=== PATIENT | female | born 1970 | race Caucasian/White ===

== ENCOUNTER 2018-03-15 09:59 | Emergency (ER) | payer SELFPAY ==
--- NOTE | 2018-03-15 11:10 | RAD REPORT ---
EXAM DESCRIPTION: CT - Head Brain Wo Cont - 03/15/2018 11:04 am CLINICAL HISTORY: Headache COMPARISON: August 2017 TECHNIQUE: Axial 5 mm thick images of the head were obtained without IV contrast. All CT scans are performed using dose optimization technique as appropriate and may include automated exposure control or mA/KV adjustment according to patient size. FINDINGS: No intracranial hemorrhage, mass, edema or shift of mid-line structures. No acute infarcti on changes seen. No abnormal extra-axial fluid collections. Ventricles are normal. Mastoid air cells and visualized portions of the paranasal sinuses are clear. No acute bony findings. IMPRESSION: Negative non-contrast CT head examination. No significant change from comparison.
[2018-03-15] MEDS ORDERED: KETOROLAC 30 MG/ML INJ ONE (11:39)
[2018-03-15] MEDS ORDERED: METOCLOPRAMIDE 10 MG/2mL INJ ONE (11:39)
[2018-03-15] MEDS ORDERED: DIPHENHYDRAMINE 50 MG/ML VIAL ONE (11:39)
--- NOTE | 2018-03-15 12:06 | EDPHYS ---
Physician Documentation [facility] Name: Stacey Sesay Age: 47 yrs Sex: Female : 1970 Arrival Date: 03/15/2018 Time: 10:02 Bed 30 Private MD: None, None ED Physician Dion De Leon HPI: 03/15 11:00 This 47 yrs old Female presents to ER via Ambulatory with complaints of pm1 Headache, Vomiting. 11:00 The patient complains of pain to the left occipital area and right occipital area pm1 radiating to forehead. The patient describes the headache as aching, constant. Onset: The symptoms/episode began/occurred 1 week(s) ago. Associated signs and symptoms: Pertinent positives: nausea, Photophobia vomiting, Pertinent negatives: fever, neck stiffness, paresthesias, weakness. Severity of symptoms: in the emergency department the pain is actually worse. Headache History: The patient has had previous headaches and this one is similar to previous episodes. The symptoms are alleviated by nothing. the symptoms are aggravated by lights. The patient has not experienced similar symptoms in the past. The patient has not recently seen a physician. 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 - Social history:: Smoking status: Patient uses tobacco products, smokes one pack cigarettes per day. - Ebola Screening: : No symptoms or risks identified at this time. ROS: 11:00 Constitutional: Negative for fever, chills, and weight loss, Eyes: Negative for injury, pm1 pain, redness, and discharge, ENT: Negative for injury, pain, and discharge, Neck: Negative for injury, pain, and swelling, Cardiovascular: Negative for chest pain, palpitations, and edema, Respiratory: Negative for shortness of breath, cough, wheezing, and pleuritic chest pain, Abdomen/GI: Negative for abdominal pain, nausea, vomiting, diarrhea, and constipation, Back: Negative for injury and pain, : Negative for injury, bleeding, discharge, and swelling, MS/Extremity: Negative for injury and deformity, Skin: Negative for injury, rash, and discoloration. 11:00 Neuro: Positive for headache, Negative for dizziness, numbness, tingling, weakness. Exam: 11:00 Constitutional: This is a well developed, well nourished patient who is awake, alert, pm1 and in no acute distress. Eyes: Pupils equal round and reactive to light, extra-ocular motions intact. Lids and lashes normal. Conjunctiva and sclera are non-icteric and not injected. Cornea within normal limits. Periorbital areas with no swelling, redness, or edema. ENT: Nares patent. No nasal discharge, no septal abnormalities noted. Tympanic membranes are normal and external auditory canals are clear. Oropharynx with no redness, swelling, or masses, exudates, or evidence of obstruction, uvula midline. Mucous membranes moist. Neck: Trachea midline, no thyromegaly or masses palpated, and no cervical lymphadenopathy. Supple, full range of motion without nuchal rigidity, or vertebral point tenderness. No Meningismus. Chest/axilla: Normal chest wall appearance and motion. Nontender with no deformity. No lesions are appreciated. Cardiovascular: Regular rate and rhythm with a normal S1 and S2. No gallops, murmurs, or rubs. Normal PMI, no JVD. No pulse deficits. Respiratory: Lungs have equal breath sounds bilaterally, clear to auscultation and percussion. No rales, rhonchi or wheezes noted. No increased work of breathing, no retractions or nasal flaring. Abdomen/GI: Soft, non-tender, with normal bowel sounds. No distension or tympany. No guarding or rebound. No evidence of tenderness throughout. Back: No spinal tenderness. No costovertebral tenderness. Full range of motion. Skin: Warm, dry with normal turgor. Normal color with no rashes, no lesions, and no evidence of cellulitis. MS/ Extremity: Pulses equal, no cyanosis. Neurovascular intact. Full, normal range of motion. 11:00 Head/face: Exam is negative for ramirez signs, contusion, raccoon eyes, swelling, Noted is no obvious of injury or deformity except tenderness, of the top of head, forehead, left occipital area and right occipital area. 11:00 Neuro: Orientation: is normal, Cranial nerves: CN II- XII are normal as tested, Cerebellar function: normal finger to nose testing, Motor: moves all fours, Sensation: is normal, no obvious gross deficits. Vital Signs: 10:07 BP 146 / 104; Pulse 68; Resp 18; Temp 97; Pulse Ox 98% ; Weight 78.02 kg; Height 5 ft. sv 4 in. (162.56 cm); Pain 8/10; 10:37 BP 124 / 85; Pulse 61; Resp 16; Pulse Ox 99% on R/A; Pain 8/10; ed1 11:13 BP 151 / 87; Pulse 56; Resp 20; Pulse Ox 100% on R/A; Pain 10/10; ed1 12:02 BP 134 / 85; Pulse 72; Resp 16; Pulse Ox 100% on R/A; Pain 0/10; ed1 10:07 Body Mass Index 29.52 (78.02 kg, 162.56 cm) sv MDM: 10:18 Patient medically screened. pm1 12:05 Data reviewed: vital signs. Data interpreted: Pulse oximetry: on room air is 100 %. pm1 Interpretation: normal. Counseling: I had a detailed discussion with the patient and/or guardian regarding: the historical points, exam findings, and any diagnostic results supporting the discharge/admit diagnosis, radiology results, the need for outpatient follow up, to return to the emergency department if symptoms worsen or persist or if there are any questions or concerns that arise at home. 12:05 ED course: Pain improved with medications given in the ER. pm1 03/15 10:27 Order name: Urine Dipstick--Ancillary (enter results) 03/15 10:27 Order name: Urine --Ancillary (enter results) 03/15 10:33 Order name: CT Head Brain wo Cont; Complete Time: 11:16 pm1 03/15 11:20 Order name: IV Saline Lock; Complete Time: 11:33 pm1 Administered Medications: 11:42 Drug: Reglan 10 mg Route: IVP; Site: right antecubital; ss 12:15 Follow up: Response: No adverse reaction; Marked relief of symptoms ed1 11:42 Drug: Benadryl 25 mg Route: IVP; Site: right antecubital; ss 12:15 Follow up: Response: No adverse reaction; Marked relief of symptoms ed1 11:42 Drug: TORadol 30 mg Route: IVP; Site: right antecubital; ss 12:15 Follow up: Response: No adverse reaction; Pain is decreased ed1 Disposition: 14:42 Co-signature as Attending Physician, Dion De Leon MD I agree with the assessment and kdr plan of care. Disposition: 03/15/18 12:06 Discharged to Home. Impression: Headache. - Condition is Stable. - Discharge Instructions: General Headache Without Cause. - Medication Reconciliation Form, Thank You Letter, Antibiotic Education, Prescription Opioid Use form. - Follow up: Emergency Department; When: As needed; Reason: Worsening of condition. Follow up: Private Physician; When: 2 - 3 days; Reason: Recheck today's complaints, Continuance of care, Re-evaluation by your physician. - Problem is new. - Symptoms have improved. Signatures: Dispatcher [employer] EDMS Nisha Lucero RN Dion Leyva MD MD [facility] Kristin Kessler RN RN Ngozi Pratt, FOOD PRODUCTION WORKER FOOD PRODUCTION WORKER ed1 Michael Silver NP CHIEF WHARFINGER pm1 Corrections: (The following items were deleted from the chart) 12:15 12:06 03/15/2018 12:06 Discharged to Home. Impression: Headache. Condition is Stable. ed1 Forms are Medication Reconciliation Form, Thank You Letter, Antibiotic Education, Prescription Opioid Use. Follow up: Emergency Department; When: As needed; Reason: Worsening of condition. Follow up: Private Physician; When: 2 - 3 days; Reason: Recheck today's complaints, Continuance of care, Re-evaluation by your physician. Problem is new. Symptoms have improved. pm1
--- NOTE | 2018-03-15 12:06 | ER ---
Nurse's Notes [facility] Name: Stacey Sesay Age: 47 yrs Sex: Female : 1970 Arrival Date: 03/15/2018 Time: 10:02 Bed 30 Private MD: None, None Diagnosis: Headache Presentation: 03/15 10:05 Presenting complaint: Patient states: intermittent migraine, dizziness, vomiting x 1 sv week. Transition of care: patient was not received from another setting of care. Onset of symptoms was March 08, 2018. Care prior to arrival: None. 10:05 Method Of Arrival: Ambulatory sv 10:05 Acuity: MERARY 3 sv 10:27 Risk Assessment: Do you want to hurt yourself or someone else? Patient reports no ed1 desire to harm self or others. Initial Sepsis Screen: Does the patient meet any 2 criteria? No. Patient's initial sepsis screen is negative. Does the patient have a suspected source of infection? No. Patient's initial sepsis screen is negative. Triage Assessment: 10:10 Pain: Also complains of nausea. ed1 10:10 Headache History: Denies prior headaches. 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 - Social history:: Smoking status: Patient uses tobacco products, smokes one pack cigarettes per day. - Ebola Screening: : No symptoms or risks identified at this time. Screenin:12 Abuse screen: Denies threats or abuse. Denies injuries from another. Nutritional ed1 screening: No deficits noted. Tuberculosis screening: No symptoms or risk factors identified. Fall Risk None identified. Assessment: 10:10 General: Appears uncomfortable, Behavior is calm, cooperative. Pain: Complains of pain ed1 in head Pain does not radiate. Pain currently is 8 out of 10 on a pain scale. Quality of pain is described as aching, throbbing, Pain began started 1 week ago Is continuous, Current management - is no interventions. Neuro: Level of Consciousness is awake, alert, obeys commands, Oriented to person, place, time, situation, Reports blurred vision dizziness, headache in entire parietal area, frontal area, occipital area, that is the "worst ever". Cardiovascular: Denies chest pain, Heart tones S1 S2 present Capillary refill < 3 seconds in bilateral fingers. Respiratory: Airway is patent Respiratory effort is even, unlabored, Respiratory pattern is regular, symmetrical, Breath sounds are clear bilaterally. GI: Abdomen is non-distended, Bowel sounds present X 4 quads. Abd is soft and non tender X 4 quads. Reports nausea, vomiting, Patient currently denies diarrhea. : No signs and/or symptoms were reported regarding the genitourinary system. EENT: No signs and/or symptoms were reported regarding the EENT system. Derm: Skin is pink, warm \\T\\ dry. Musculoskeletal: Circulation, motion, and sensation intact. 10:15 General: The previous assessment is accurate, call light remains within reach. . ss 10:38 Reassessment: Pt ambulatory to bathroom with steady gait. Reports one episode of ed1 vomiting in bathroom. 11:13 Reassessment: No changes from previously documented assessment. Patient and/or family ed1 updated on plan of care and expected duration. Pain level reassessed. Patient is alert, oriented x 3, equal unlabored respirations, skin warm/dry/pink. Patient states symptoms have not improved. 12:02 Reassessment: Patient appears in no apparent distress at this time. Patient and/or ed1 family updated on plan of care and expected duration. Pain level reassessed. Patient is alert, oriented x 3, equal unlabored respirations, skin warm/dry/pink. Patient states feeling better. Patient states symptoms have improved. Vital Signs: 10:07 BP 146 / 104; Pulse 68; Resp 18; Temp 97; Pulse Ox 98% ; Weight 78.02 kg; Height 5 ft. sv 4 in. (162.56 cm); Pain 8/10; 10:37 BP 124 / 85; Pulse 61; Resp 16; Pulse Ox 99% on R/A; Pain 8/10; ed1 11:13 BP 151 / 87; Pulse 56; Resp 20; Pulse Ox 100% on R/A; Pain 10/10; ed1 12:02 BP 134 / 85; Pulse 72; Resp 16; Pulse Ox 100% on R/A; Pain 0/10; ed1 10:07 Body Mass Index 29.52 (78.02 kg, 162.56 cm) sv ED Course: 10:02 Patient arrived in ED. mr 10:02 None, None is Private Physician. mr 10:06 Triage completed. sv 10:07 Arm band placed on left wrist. sv 10:10 Ngozi Pratt LVN is Primary Nurse. ed1 10:12 Awaiting ED provider evaluation. ed1 10:12 Patient has correct armband on for positive identification. Placed in gown. Bed in low ed1 position. Call light in reach. Side rails up X2. Pulse ox on. NIBP on. 10:18 Michael Silver NP is PHCP. pm1 10:18 Dion De Leon MD is Attending Physician. pm1 10:20 Urine collected: clean catch specimen, clear. ed1 10:[address] vm2 11:03 CT completed. Patient tolerated procedure well. Patient moved back from CT. vm2 11:04 CT Head Brain wo Cont In Process Unspecified. EDMS 11:33 Inserted saline lock: 20 gauge in right antecubital area, using aseptic technique. ed1 12:03 Awaiting disposition. ed1 12:13 No provider procedures requiring assistance completed. IV discontinued, intact, ed1 bleeding controlled, No redness/swelling at site. Pressure dressing applied. Administered Medications: 11:42 Drug: Reglan 10 mg Route: IVP; Site: right antecubital; ss 12:15 Follow up: Response: No adverse reaction; Marked relief of symptoms ed1 11:42 Drug: Benadryl 25 mg Route: IVP; Site: right antecubital; ss 12:15 Follow up: Response: No adverse reaction; Marked relief of symptoms ed1 11:42 Drug: TORadol 30 mg Route: IVP; Site: right antecubital; ss 12:15 Follow up: Response: No adverse reaction; Pain is decreased ed1 Outcome: 12:06 Discharge ordered by . pm1 12:13 Discharged to home ambulatory, with family. ed1 12:13 Condition: good 12:13 Discharge instructions given to patient, Instructed on discharge instructions, follow up and referral plans. Demonstrated understanding of instructions, follow-up care. 12:15 Patient left the ED. ed1 Signatures: Dispatcher [employer] EDNisha Hamilton, RN RN Roberta Castro mr Kristin Kessler, RN RN ss Ngozi Pratt, MEDICAL BILLING MANAGER MEDICAL BILLING MANAGER ed1 Michael Silver, ADVANCED PRACTICE NURSE ADVANCED PRACTICE NURSE pm1 Magalie Sears 2
[2018-03-15 12:43] LABS: Urine Blood TRACE (NEG); Urine Glucose NEGATIVE (NEG); Urine Protein NEGATIVE (NEG); Urine pH 7.5 (5.0-7.0)
== END 2018-03-15 12:15 | disposition home or self-care (01) ==
LOC: ER 09:59
DX: R51 Headache (principal); F17.210 Nicotine dependence, cigarettes, uncomplicated
CPT/HCPCS: 70450; 81003; 81025; 96374; 96375; 99284; J2765

== ENCOUNTER 2019-02-16 13:06 | Emergency (ER) | payer SELFPAY ==
[2019-02-16] MEDS ORDERED: DIAZEPAM 5 MG TABLET ONE (14:28)
[2019-02-16] MEDS ORDERED: HYDROCODONE/APAP 5/325 MG TAB ONE (14:28)
[2019-02-16] MEDS ORDERED: HYDROCODONE/APAP 10/325 TAB ONE (14:30)
--- NOTE | 2019-02-16 15:19 | RAD REPORT ---
EXAM DESCRIPTION: RAD - Lumbar Spine 3 Views - 02/16/2019 3:11 pm CLINICAL HISTORY: Back pain FINDINGS: Minimal posterior subluxation L4 on L5 Moderate spondylosis involves distal lumbar spine consisting disc space narrowing and osteophytes. Os teoarthritis involves the facet joints of lower lumbar spine No fracture Osteoporosis
--- NOTE | 2019-02-16 15:31 | RAD REPORT ---
EXAM DESCRIPTION: USExtremity Venous Uni Ltd02/16/2019 3:00 pm CLINICAL HISTORY: Right leg pain and swelling. COMPARISON: None. FINDINGS: Right common femoral, superficial femoral, popliteal veins are compressible and demonstrat e augmentation. Doppler demonstrates good flow. 27 millimeter fluid collection medial right knee IMPRESSION: No evidence of deep venous thrombosis involving the right lower extremity. 27 millimeter fluid collection medial right knee may represent a small hematoma
[2019-02-16] MEDS ORDERED: ONDANSETRON 4 MG (ODT) TAB ONE (15:41)
[2019-02-16 17:43] LABS: BUN Blood Urea Nitrogen 10 mg/dL (7-18); Bicarbonate 28 mmol/L (21-32); Glucose Level 77 mg/dL (74-106); Potassium 3.8 mmol/L (3.5-5.1); Sodium Level 140 mmol/L (136-145)
--- NOTE | 2019-02-16 18:32 | RAD REPORT ---
EXAM DESCRIPTION: CT - Angio Aorta For Dissection - 02/16/2019 6:12 pm CLINICAL HISTORY: . Chest /abd pain COMPARISON: None TECHNIQUE: Computed tomography angiography of the chest, abdomen pelvis were obtained. 100 cc Isovue 370 was administered intravenously. Coronal and sagittal reconstruction were performed. MIP 3D reconstruction was performed All CT scans are performed using dose optimization technique as appropriate and may include automated exposure control or mA/KV adjustment according to patient size. FINDINGS: An aortic dissection is not seen. An aortic aneurysm is not displayed. The celiac, SMA and COLE are patent . A lung consolidation is not present. A pericardial effusion is not seen. A pleural effusion is not n oted. The liver,spleen, pancreas adrenals kidneys demonstrate no significant abnormality. minimal anterior subluxation of L5 on S1. Spondylolysis L5 3 centimeter area of narrowing involves the sigmoid colon with diverticula and minimal stranding in t he adjacent fat Normal appendix IMPRESSION: Negative for an aortic dissection. 3 centimeter narrowing of the sigmoid colon with diverticula and minimal stranding in the adjacent f at. This may indicate mild diverticulitis or a mass. Direct visualization recommended
--- NOTE | 2019-02-16 19:24 | ER ---
Nurse's Notes [facility] Name: Stacey Sesay Age: 48 yrs Sex: Female : 1970 Arrival Date: 02/16/2019 Time: 13:08 Bed 15 Private MD: Diagnosis: Diverticulitis of large intestine with perforation and abscess without bleeding;Hematoma of the right leg;Strain of muscle, fascia and tendon of lower back;Strain of muscle and tendon of back wall of thorax Presentation: 02/16 13:09 Presenting complaint: Patient states: about 30 mins ago, i noticed pain and a knot on hj the back of my R thigh area, pain is 8/10; denies SOB;denies trauma to the area; denies hx of DVT;. Transition of care: patient was not received from another setting of care. Onset of symptoms was February 16, 2019. Risk Assessment: Do you want to hurt yourself or someone else? Patient reports no desire to harm self or others. Initial Sepsis Screen: Does the patient meet any 2 criteria? No. Patient's initial sepsis screen is negative. Does the patient have a suspected source of infection? No. Patient's initial sepsis screen is negative. Care prior to arrival: None. 13:09 Method Of Arrival: Ambulatory 13:09 Acuity: MERARY 4 hj CVICU RN: 13:11 LMP N/A - Post-menopause Historical: - Allergies: 13:10 No Known Allergies; hj - PMHx: 13:10 Aneurysm; Seizures; hj - PSHx: 13:10 Cholecystectomy; hj - Immunization history:: Adult Immunizations up to date. - Social history:: Smoking status: Patient/guardian denies using tobacco. - Ebola Screening: : No symptoms or risks identified at this time. Screenin:10 Abuse screen: Denies threats or abuse. Denies injuries from another. Nutritional sg screening: No deficits noted. Tuberculosis screening: No symptoms or risk factors identified. Never had TB. Fall Risk None identified. Assessment: 14:10 General: Appears in no apparent distress. well groomed, well developed, well nourished, sg Behavior is calm, cooperative, appropriate for age. Pain: Complains of pain in right leg Quality of pain is described as aching, sharp, shooting, throbbing. Neuro: Level of Consciousness is awake, alert, obeys commands, Oriented to person, place, time, situation, Plastic Straightening Roll Operator are equal bilaterally Moves all extremities. Full function Gait is steady, Speech is normal, Facial symmetry appears normal. Cardiovascular: Patient's skin is warm and dry. Chest pain is denied. Respiratory: Airway is patent Respiratory effort is even, unlabored, Respiratory pattern is regular, symmetrical. GI: Abdomen is round non-distended, Reports tolerance of fluids, tolerance of food. : No signs and/or symptoms were reported regarding the genitourinary system. EENT: No signs and/or symptoms were reported regarding the EENT system. Derm: Skin is pink, warm \T\ dry. Musculoskeletal: Circulation, motion, and sensation intact. Range of motion: intact in all extremities, Swelling absent. 16:33 Reassessment: Patient appears in no apparent distress at this time. Patient and/or sg family updated on plan of care and expected duration. Pain level reassessed. Patient is alert, oriented x 3, equal unlabored respirations, skin warm/dry/pink. Patient states feeling better. 19:20 General: Appears in no apparent distress. Behavior is calm, cooperative, appropriate ea for age. Pain: Complains of pain in right leg. Neuro: Level of Consciousness is awake, alert, obeys commands, Oriented to person, place, time, situation. Cardiovascular: Patient's skin is warm and dry. Respiratory: Airway is patent Respiratory effort is even, unlabored, Respiratory pattern is regular, symmetrical. Derm: Skin is pink, warm \T\ dry. 19:40 Reassessment: Reassessment: Patient and/or family updated on plan of care and expected ea duration. Pain level reassessed. Patient is alert, oriented x 3, equal unlabored respirations, skin warm/dry/pink. Discharge instruction given to patient, verbalized the understanding of instruction. Pt left ambulatory with significant other, pt tolerating well. Patient states feeling better. Vital Signs: 13:11 BP 120 / 80; Pulse 85; Resp 18; Temp 98.1(TE); Pulse Ox 98% on R/A; Weight 78.93 kg; Height 5 ft. 4 in. (162.56 cm); Pain 7/10; 19:30 BP 118 / 62; Pulse 70; Resp 18; Pulse Ox 98% on R/A; ea 13:11 Body Mass Index 29.87 (78.93 kg, 162.56 cm) ED Course: 13:08 Patient arrived in ED. hj 13:10 Triage completed. hj 13:10 Arm band placed on right wrist. hj 14:01 Malik Jolly PA is PHCP. jmm 14:01 Dion De Leon MD is Attending Physician. jmm 14:08 Victorino Park, RN is Primary Nurse. sg 14:10 No provider procedures requiring assistance completed. sg 14:22 Awaiting for x-ray, Awaiting: and ultrasound. sg 15:14 X-ray completed. Patient tolerated procedure well. Patient moved back from radiology. mh1 15:16 Ultrasound completed. hr 15:36 US Extremity Venous Unilateral Ltd In Process Unspecified. EDMS 17:05 Radiology exam delayed due to lab results not completed at this time. (BUN/Creatinine) vm2 test not completed at this time. IV insertion attempt and/or patient not having appropriate IV at this time. 17:17 Initial lab(s) drawn, by me, sent to lab. Inserted saline lock: 22 gauge in left sg antecubital area, using aseptic technique. Blood collected. Missed attempt(s): 22 gauge in right antecubital area. Bleeding controlled, band aid applied, catheter tip intact. 17:[address] nj 18:12 CT Aorta for Dissection In Process Unspecified. EDMS 19:20 Patient has correct armband on for positive identification. Bed in low position. Call ea light in reach. Side rails up X2. 19:21 Toñito Lyles MD is Referral Physician. jmm 19:40 IV discontinued, intact, bleeding controlled, No redness/swelling at site. Pressure ea dressing applied. Administered Medications: 14:14 Drug: [place] 10 mg-325 mg 1 tabs Route: PO; sg 16:32 Follow up: Response: No adverse reaction; Pain is decreased sg 14:14 Drug: Valium 5 mg Route: PO; sg 14:30 Follow up: Response: No adverse reaction sg 15:28 Drug: Zofran 4 mg Route: PO; sg 16:14 Follow up: Response: No adverse reaction sg Outcome: 19:23 Discharge ordered by . jmm 19:46 Discharged to home ambulatory, with significant other. ea 19:46 Condition: improved 19:46 Discharge instructions given to patient, Instructed on discharge instructions, follow up and referral plans. medication usage, Demonstrated understanding of instructions, follow-up care, medications, Prescriptions given X 3. 19:47 Patient left the ED. erinn Signatures: Dispatcher [employer] EDMS Victorino Park, RN RN Malik Castillo PA PA jmm Harvey, Martha 1 Audra Wilder hr Norberto Weinstein RN RN Carmine Juan [facility] Cecilia Dugan RN RN ea Corrections: (The following items were deleted from the chart) 13:10 13:09 Presenting complaint: Patient states: about 30 mins ago, i noticed pain and a hj knot on the back of my R thigh area, pain is 8/10; denies SOB; hj 13:12 13:11 Pulse 85bpm; Resp 18bpm; Pulse Ox 98% RA; Temp 98.1F Temporal; 78.93 kg; Height 5 hj ft. 4 in.; BMI: 29.8; Pain 7/10; hj 19:45 19:40 Reassessment: erinn plasencia
--- NOTE | 2019-02-16 19:25 | EDPHYS ---
Physician Documentation [facility] Name: Stacey Sesay Age: 48 yrs Sex: Female : 1970 Arrival Date: 02/16/2019 Time: 13:08 Bed 15 Private MD: ED Physician Dion De Leon HPI: 02/16 14:10 This 48 yrs old Female presents to ER via Ambulatory with complaints of Leg jmm Pain. 14:10 The patient presents with pain, that is acute, swelling. The complaints affect the jmm posterior aspect of right knee. Onset: The symptoms/episode began/occurred today. Modifying factors: The symptoms are alleviated by nothing. the symptoms are aggravated by movement. Associated signs and symptoms: Pertinent positives: swelling. This is a 48 year old female that presents to the ED with complaints of right posterior leg pain and swelling beginning today. Patient states the pain radiates from her leg and up to her right upper back. Patient states having a history of cerebral aneurysm. . 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 - Social history:: Smoking status: Patient/guardian denies using tobacco. - Ebola Screening: : No symptoms or risks identified at this time. ROS: 14:10 Constitutional: Negative for fever, chills, and weight loss, Cardiovascular: Negative jmm for chest pain, palpitations, and edema, Respiratory: Negative for shortness of breath, cough, wheezing, and pleuritic chest pain. 14:10 Abdomen/GI: Positive for abdominal pain. 14:10 Back: Positive for radiated pain. 14:10 MS/extremity: Positive for pain, swelling. 14:10 All other systems are negative. Exam: 14:10 Head/Face: atraumatic. Eyes: EOMI, no conjunctival erythema appreciated ENT: Moist jmm Mucus Membranes Neck: Trachea midline, Supple Chest/axilla: Normal chest wall appearance and motion. Cardiovascular: Regular rate and rhythm. No edema appreciated Respiratory: Normal respirations, no respiratory distress appreciated 14:10 Constitutional: The patient appears in no acute distress, alert, awake. 14:10 Abdomen/GI: Inspection: abdomen appears normal, Bowel sounds: normal, Palpation: soft, mild abdominal tenderness, in the left lower quadrant. 14:10 Back: right sided parapinal lumbar and thoracic pain on palpation. 14:10 Musculoskeletal/extremity: swelling noted to the right popliteal region, full dorsalis pulse, compartments are soft, NVI. 14:10 Skin: Appearance: Color: normal in color. 14:10 Neuro: Orientation: is normal, Mentation: is normal, Memory: is normal. 14:10 Psych: Behavior/mood is pleasant, cooperative, anxious. Vital Signs: 13:11 BP 120 / 80; Pulse 85; Resp 18; Temp 98.1(TE); Pulse Ox 98% on R/A; Weight 78.93 kg; hj Height 5 ft. 4 in. (162.56 cm); Pain 7/10; 19:30 BP 118 / 62; Pulse 70; Resp 18; Pulse Ox 98% on R/A; ea 13:11 Body Mass Index 29.87 (78.93 kg, 162.56 cm) hj MDM: 14:10 Patient medically screened. [facility] 19:20 Data reviewed: vital signs, nurses notes. Counseling: I had a detailed discussion with rima the patient and/or guardian regarding: the historical points, exam findings, and any diagnostic results supporting the discharge/admit diagnosis, lab results, radiology results, the need for outpatient follow up, to return to the emergency department if symptoms worsen or persist or if there are any questions or concerns that arise at home. ED course: Patient states having ongoing abdominal pain since diagnosis of diverticulitis 3 months prior[address] Denies vomiting. CT reveals possible mild diverticulitis. Patient prescribed oral antibiotics and advised to follow up with GI. Patient is otherwise given strict return precautions. Patient understood and agrees with the plan of care. . 02/16 16:59 Order name: BMP; Complete Time: 18:04 [facility] 02/16 18:06 Order name: Urine Dipstick--Ancillary (enter results) ms 02/16 14:11 Order name: Lumbar Spine (3 Views) XRAY [facility] 02/16 14:11 Order name: US Extremity Venous Unilateral Ltd; Complete Time: 16:53 [facility] 02/16 16:12 Order name: RAD; Complete Time: 16:53 [facility] 02/16 16:59 Order name: CT Aorta for Dissection; Complete Time: 18:49 [facility] 02/16 16:59 Order name: Saline Lock; Complete Time: 19:40 [facility] 02/16 16:59 Order name: Urine Test (obtain specimen); Complete Time: 18:08 [facility] Administered Medications: 14:14 Drug: [place] 10 mg-325 mg 1 tabs Route: PO; sg 16:32 Follow up: Response: No adverse reaction; Pain is decreased sg 14:14 Drug: Valium 5 mg Route: PO; sg 14:30 Follow up: Response: No adverse reaction sg 15:28 Drug: Zofran 4 mg Route: PO; sg 16:14 Follow up: Response: No adverse reaction sg Disposition: 02/17 07:28 Co-signature as Attending Physician, Dino De Leon MD I agree with the assessment and kdr plan of care. Disposition: 02/16/19 19:23 Discharged to Home. Impression: Diverticulitis of large intestine with perforation and abscess without bleeding, Hematoma of the right leg, Strain of muscle, fascia and tendon of lower back, Strain of muscle and tendon of back wall of thorax. - Condition is Stable. - Discharge Instructions: Back Pain, Adult, Diverticulitis, Thoracic Strain. - Prescriptions for Cipro 500 mg Oral Tablet - take 1 tablet by ORAL route every 12 hours for 10 days; 20 tablet. Flagyl 500 mg Oral Tablet - take 1 tablet by ORAL route every 8 hours for 10 days; 30 tablet. orphenadrine citrate 100 mg Oral Tablet Sustained Release - take 1 tablet by ORAL route 2 times per day As needed; 20 tablet. - Medication Reconciliation Form, Thank You Letter, Antibiotic Education, Prescription Opioid Use form. - Follow up: Private Physician; When: 2 - 3 days; Reason: Recheck today's complaints, Continuance of care, Re-evaluation by your physician. Follow up: Toñito Lyles MD; When: 2 - 3 days; Reason: Recheck today's complaints, Continuance of care, Re-evaluation by your physician. Signatures: Dispatcher [employer] Victorino Meadows RN RN sg Rittger, Kevin, MD MD kdr Mickail, Joel, PA PA [facility] Norberto Weinstein RN RN hj Antunez, Elena, RN RN ea Corrections: (The following items were deleted from the chart) 02/16 19:47 19:23 02/16/2019 19:23 Discharged to Home. Impression: Diverticulitis of large ea intestine with perforation and abscess without bleeding; Hematoma of the right leg; Strain of muscle, fascia and tendon of lower back; Strain of muscle and tendon of back wall of thorax. Condition is Stable. Forms are Medication Reconciliation Form, Thank You Letter, Antibiotic Education, Prescription Opioid Use. Follow up: Private Physician; When: 2 - 3 days; Reason: Recheck today's complaints, Continuance of care, Re-evaluation by your physician. Follow up: Toñito Lyles; When: 2 - 3 days; Reason: Recheck today's complaints, Continuance of care, Re-evaluation by your physician. rima
[2019-02-16 20:22] LABS: Urine Blood TRACE (NEG); Urine Glucose NEGATIVE (NEG); Urine Protein NEGATIVE (NEG); Urine Specific Gravity <1.005 (1.005-1.030)
== END 2019-02-16 19:47 | disposition home or self-care (01) ==
LOC: ER 13:06
DX: S39.012A Strain of muscle, fascia and tendon of lower back, initial encounter (principal); S29.012A Strain of muscle and tendon of back wall of thorax, initial encounter; K57.20 Diverticulitis of large intestine with perforation and abscess without bleeding
CPT/HCPCS: 36415; 71275; 72100; 74175; 80048; 81003; 93971; 99284; Q9967

== ENCOUNTER 2022-06-04 09:30 | Emergency (ER) | payer SELFPAY ==
--- OUTSIDE RECORDS SUMMARY | 2022-06-04 09:33 | XMS REPORT | Continuity of Care Document ---
:1970 Author Organization [facility] t Address [address] [place] [address] [place] [id number] Care Team Providers Name Role Phone KIMMY_S Attending Clinician Unavailable Es Shields Attending Clinician [phone] KIMMY_S Admitting Clinician Unavailable Payers Payer Name Policy Type Policy Number Effective Date Expiration Date S ource Problems This patient has no known problems. Allergies, Adverse Reactions, Alerts This patient has no known allergies or adverse reactions. Medications This patient has no known medications. Procedures This patient has no known procedures. Encounters Start End Encounter Admission Attending Care Care Encounter Source Date/Time Date/Time Type Type Clinicians Facility Department ID 2021-05-24 2021-05-24 Outpatient [facility] [id number] [place] 09:45:00 09:45:00 [facility] 2021-05-24 2021-05-24 Outpatient Kimmy [facility] [id number] 00:00:00 00:00:00 Es [id number] 2021-05-23 2021-05-23 Outpatient [facility] [id number] [place] 09:34:00 09:34:00 [facility] Results This patient has no known results.
[2022-06-04] MEDS ORDERED: levETIRAcetam 500 MG TAB ONE (09:54)
--- NOTE | 2022-06-04 10:51 | EDPHYS ---
Physician Documentation [facility] Name: Stacey Sesay Age: 51 yrs Sex: Female : 1970 Arrival Date: 06/04/2022 Time: 09:37 Bed 7 Private MD: ED Physician Isidoro Davis HPI: 06/04 10:45 This 51 yrs old Female presents to ER via EMS with complaints of Seizure. kb 10:45 The patient presents after having a single isolated seizure. Character of seizure(s): kb Loss of consciousness: the patient experienced loss of consciousness, Motor activity: generalized, shaking all over, Incontinence: none, Apnea: the patient did not experience apnea. Seizure onset: just prior to arrival. Context: the seizure(s) was witnessed, by co-worker(s), occurred at work, occurred while the patient was sitting. Seizure Hx: Original onset: since childhood,\E\ Seizure medications: dilantin. Associated injury: The patient did not suffer any apparent associated injury. EMS care: none. Current symptoms: headache, that is mild. The patient has experienced similar episodes in the past. The patient has not recently seen a physician. pt reports she fell off of a step stool and it triggered a seizure. Denies any injuries. States she has a slight headache, but it feels like it normally does after a seizure. Denies hitting head when she fell. Reports she has taken dilantin her entire life for seizures, but doesn't like how it makes her feel so she stopped it 6 months ago. REports last seizure was about 6 months ago as well. . Historical: - Allergies: 09:39 No Known Allergies; mb8 - PMHx: 09:39 Aneurysm; Seizures; mb8 - Social history:: Smoking status: . ROS: 10:45 Constitutional: Negative for fever, chills, and weight loss. kb 10:45 Neuro: Positive for seizure activity. 10:45 All other systems are negative. Exam: 10:45 Constitutional: This is a well developed, well nourished patient who is awake, alert, kb and in no acute distress. Head/Face: Normocephalic, atraumatic. Eyes: Pupils equal round and reactive to light, extra-ocular motions intact. Lids and lashes normal. Conjunctiva and sclera are non-icteric and not injected. Cornea within normal limits. Periorbital areas with no swelling, redness, or edema. ENT: Moist Mucous membranes Cardiovascular: Regular rate and rhythm with a normal S1 and S2. No gallops, murmurs, or rubs. No pulse deficits. Respiratory: Respirations even and unlabored. No increased work of breathing. Talking in full sentences Abdomen/GI: Soft, non-tender. No distention Skin: Warm, dry with normal turgor. Normal color. MS/ Extremity: Pulses equal, no cyanosis. Neurovascular intact. Full, normal range of motion. Neuro: Awake and alert, GCS 15, oriented to person, place, time, and situation. Moves all extremities. Normal gait. Vital Signs: 09:37 BP 146 / 92; Pulse 75; Resp 15; Temp 97.9; Pulse Ox 98% on R/A; Pain 5/10; mb8 10:06 BP 121 / 84; Pulse 73; Resp 20; Pulse Ox 100% on R/A; mb8 [place] Coma Score: 09:39 Eye Response: spontaneous(4). Verbal Response: oriented(5). Motor Response: obeys mb8 commands(6). Total: 15. MDM: 09:38 Patient medically screened. kb 10:45 Data reviewed: vital signs, nurses notes. Data interpreted: Pulse oximetry: on room air kb is 100 %. Interpretation: normal. Counseling: I had a detailed discussion with the patient and/or guardian regarding: the historical points, exam findings, and any diagnostic results supporting the discharge/admit diagnosis, the need for outpatient follow up, a neurologist, to return to the emergency department if symptoms worsen or persist or if there are any questions or concerns that arise at home. Administered Medications: 09:56 Drug: Keppra (levETIRAcetam) 1000 mg Route: PO; mb8 11:01 Follow up: Response: No adverse reaction mb8 Disposition: 21:10 Co-signature as Attending Physician, Isidoro Davis DO I was immediately available on-site ms3 in the Emergency Department for consultation in the care of the patient.. Disposition Summary: 06/04/22 10:51 Discharge Ordered Location: Home kb Condition: Stable kb Diagnosis - Epileptic seizures related to external causes kb Followup: kb - With: Emergency Department - When: As needed - Reason: Worsening of condition Followup: kb - With: Private Physician - When: 2 - 3 days - Reason: Recheck today's complaints, Continuance of care, Re-evaluation by your physician Discharge Instructions: - Discharge Summary Sheet kb - Seizure, Adult, [id number] kb Forms: - Medication Reconciliation Form kb - Thank You Letter kb - Antibiotic Education kb - Prescription Opioid Use kb Prescriptions: - Keppra 500 mg Oral Tablet - take 1 tablet by ORAL route every 12 hours; 20 tablet; Refills: 0, Product kb Selection Permitted Signatures: Neetu Vieyra, SERENITY-C SERENITY-Isidoro Mcgee DO DO ms3 Sriram Koenig RN RN mb8
--- NOTE | 2022-06-04 10:51 | ER ---
Nurse's Notes [facility] Name: Stacey Sesay Age: 51 yrs Sex: Female : 1970 Arrival Date: 06/04/2022 Time: 09:37 Bed 7 Private MD: Diagnosis: Epileptic seizures related to external causes Presentation: 06/04 09:37 Chief complaint: EMS states: patient fell at work today, c/o a headache, shortly after, mb8 patient experienced a seizure. Bystanders report tonic-clonic activity lasting 10-15 seconds. Patient CAOx4, non-compliant with dilantin x6 months. Coronavirus screen: Vaccine status: Patient reports receiving the 2nd dose of the covid vaccine. Ebola Screen: Patient negative for fever greater than or equal to 101.5 degrees Fahrenheit, and additional compatible Ebola Virus Disease symptoms Patient denies exposure to infectious person. Patient denies travel to an Ebola-affected area in the 21 days before illness onset. Initial Sepsis Screen: Does the patient meet any 2 criteria? No. Patient's initial sepsis screen is negative. Does the patient have a suspected source of infection? No. Patient's initial sepsis screen is negative. Risk Assessment: Do you want to hurt yourself or someone else? Patient reports no desire to harm self or others. Onset of symptoms was June 04, 2022. 09:37 Method Of Arrival: EMS: [facility] 09:37 Acuity: MERARY 3 mb8 Triage Assessment: 09:39 General: Appears in no apparent distress. Behavior is cooperative, appropriate for age, mb8 anxious. Pain: Complains of pain in base of the skull Pain does not radiate. Pain currently is 5 out of 10 on a pain scale. Quality of pain is described as aching. Neuro: Level of Consciousness is awake, alert, obeys commands, Oriented to person, place, time, situation, Appropriate for age [place] Roofer are equal bilaterally Moves all extremities. Full function Gait is steady, Speech is normal, Facial symmetry appears normal. Cardiovascular: No deficits noted. Denies chest pain, shortness of breath, Rhythm is sinus rhythm. Respiratory: No deficits noted. Historical: - Allergies: 09:39 No Known Allergies; mb8 - PMHx: 09:39 Aneurysm; Seizures; mb8 - Social history:: Smoking status: . Screenin:42 Abuse screen: Denies threats or abuse. Denies injuries from another. Nutritional mb8 screening: No deficits noted. Tuberculosis screening: No symptoms or risk factors identified. Fall Risk Fall in past 12 months (25 points). Secondary diagnosis (15 points) No IV (0 pts). Ambulatory Aid- None/Bed Rest/Nurse Assist (0 pts). Gait- Normal/Bed Rest/Wheelchair (0 pts) Mental Status- Oriented to own ability (0 pts). Total Gonsalez Fall Scale indicates Low Risk Score (25-44 pts). Fall prevention measures have been instituted. Side Rails Up X 2 As available Patient and Family Educated on Fall Prevention Program and strategies. Assessment: 09:41 General: see triage assessment. mb8 Vital Signs: 09:37 BP 146 / 92; Pulse 75; Resp 15; Temp 97.9; Pulse Ox 98% on R/A; Pain 5/10; mb8 10:06 BP 121 / 84; Pulse 73; Resp 20; Pulse Ox 100% on R/A; mb8 [place] Coma Score: 09:39 Eye Response: spontaneous(4). Verbal Response: oriented(5). Motor Response: obeys mb8 commands(6). Total: 15. ED Course: 09:37 Patient arrived in ED. mb8 09:38 Neetu [facility]ra [facility]C [facility] kb 09:38 Isidoro Davis DO is Attending Physician. kb 09:39 Triage completed. mb8 09:41 Arm band placed on. mb8 09:43 Patient has correct armband on for positive identification. Placed in gown. Bed in low mb8 position. Call light in reach. Side rails up X2. Client placed on continuous cardiac and pulse oximetry monitoring. NIBP monitoring applied. school lunch monitor on. 09:43 No provider procedures requiring assistance completed. mb8 09:52 Sriram Koenig, GENO is Primary Nurse. mb8 10:57 Patient did not have IV access during this emergency room visit. mb8 Administered Medications: 09:56 Drug: Keppra (levETIRAcetam) 1000 mg Route: PO; mb8 11:01 Follow up: Response: No adverse reaction mb8 Medication: 09:42 VIS not applicable for this client. mb8 Outcome: 10:51 Discharge ordered by . kb 10:57 Discharged to home ambulatory, with family. mb8 10:57 Condition: stable 10:57 Discharge instructions given to patient, family, Instructed on discharge instructions, follow up and referral plans. Demonstrated understanding of instructions, follow-up care. 11:01 Patient left the ED. mb8 Signatures: Neetu Vieyra, EQUIPMENT ANALYST-C EQUIPMENT ANALYST-CkSriram Douglas RN RN mb8
[2022-06-04 11:25] VITALS: TEMP 97.9
[2022-06-04 11:26] VITALS: BP 121/84; O2SAT 100
== END 2022-06-04 11:01 | disposition home or self-care (01) ==
LOC: ER 09:30
DX: G40.509 Epileptic seizures related to external causes, not intractable, without status epilepticus (principal)
CPT/HCPCS: 99284

== ENCOUNTER 2022-08-06 13:33 | Emergency (ER) | payer SELFPAY ==
--- OUTSIDE RECORDS SUMMARY | 2022-08-06 13:35 | XMS REPORT | Continuity of Care Document ---
:1970 Author Organization [facility] t Address [address] [place] [address] Care Team Providers Name Role Phone RADHA Attending Clinician Unavailable Es Shields Attending Clinician [phone] RADHA Admitting Clinician Unavailable Payers Payer Name Policy Type Policy Number Effective Date Expiration Date S ource Problems This patient has no known problems. Allergies, Adverse Reactions, Alerts This patient has no known allergies or adverse reactions. Social History Smoking Status Start Date Stop Date Source Former Smoker [facility] Medications Ordered Filled Start Stop Current Ordering Indication Dosage Frequency Signature Comments Components Source Medication Medication Date Date Medication? Clinician (SIG) Name Name amoxicillin amoxicillin No 1 Q12H amoxicilli [place] 500 500 n 500 Communi mg-potassiu mg-potassiu mg-potassi ty m m um Hospita clavulanate clavulanate clavulanat l 125 mg 125 mg e 125 mg Clinics tablet Take tablet Take tablet 1 tablet 1 tablet Take 1 every 12 every 12 tablet hours by hours by every 12 oral route oral route hours by for 10 for 10 oral route days. days. for 10 days. chlorhexidi chlorhexidi No 15mL BID chlorhexid [place] ne ne ine Communi gluconate gluconate gluconate ty 0.12 % 0.12 % 0.12 % Hospita mouthwash mouthwash mouthwash l Place [address] 15 Clinics twice a day twice a day mL twice a by mucous by mucous day by membrane membrane mucous route. route. membrane route. tramadol 50 tramadol 50 No 1 Q6H tramadol [place] mg tablet mg tablet 50 mg Comm uni Take 1 Take 1 tablet ty tablet tablet Take 1 Hospita every 6 every 6 tablet l hours by hours by every 6 Clin ics oral route oral route hours by as needed. as needed. oral route as needed. Immunizations Ordered Immunization Filled Immunization Date Status Commen ts Source Name Name COVID-19, mRNA, COVID-19, mRNA, 2021-04-29 Completed [facility] LNP-S, PF, 100 [facility]S, PF[facility] mcg/0.5 mL dose mcg/0.5 mL dose Vital Signs Vital Name Observation Time Observation Value Comments Source BP Diastolic 2021-05-24 00:00:00 94 mm[Hg] [facility] s Height 2021-05-24 00:00:00 64 [in_i] [facility] s BMI (Body Mass 2021-05-24 00:00:00 31.1 kg/m2 [facility] Index) [facility] s BP Systolic 2021-05-24 00:00:00 147 mm[Hg] [facility] s Body Weight 2021-05-24 00:00:00 2902.4 [oz_av] [facility] s Procedures Procedure Date / Time Performing Clinician Source Performed MAMMO, screening, digital, 2021-05-24 00:00:00 S [facility] Cholecystectomy [facility] Plan of Care Planned Activity Planned Date Details Comments Source Diagnostic Test 2021-05-24 CBC w/ auto diff [facility] Pending 00:00:00 [code = CBC w/ Hospital Clin ics auto diff] Diagnostic Test 2021-05-24 TSH, serum, reflex [facility] Pending 00:00:00 free T4 [code = Hospital Cli nics TSH, serum, reflex free T4] Diagnostic Test 2021-05-24 CMP, serum or [place] [facility] Pending 00:00:00 plasma [code = Hospital Clin ics CMP, serum or plasma] Diagnostic Test 2021-05-24 lipids, total, [place] Com munity Pending 00:00:00 serum [code = Hospital Clini cs lipids, total, serum] Encounters Start End Encounter Admission Attending Care Care Encounter Source Date/Time Date/Time Type Type Clinicians Facility Department ID 2021-05-24 2021-05-24 Outpatient WATERS_S [facility] [id number] [place] 09:45:00 09:45:00 [facility] 2021-05-24 2021-05-24 Outpatient Kimmy [facility] [id number] 00:00:00 00:00:00 Es [id number] 2021-05-24 2021-05-24 Es [facility] [place] 00:00:00 00:00:00 Kimmy [facility] [address] AGENT-TRAVELING PASSENGER AGENT-C: Hospital - ty [address] [place] [address] [address], [place] [address] , Ph. 2021-05-23 2021-05-23 Outpatient [facility]S [facility] [id number] 09:34:00 09:34:00 [facility] This patient has no known results.
--- NOTE | 2022-08-06 14:42 | RAD REPORT ---
EXAM DESCRIPTION: CT - Stone Protocol - 08/06/2022 2:28 pm CLINICAL HISTORY: Left flank pain radiating to the suprapubic region COMPARISON: Angio Aorta For Dissection dated 02/16/2019 TECHNIQUE: Axial 3 mm thick images were obtained without oral or IV contrast. The [id number]-[id number]-nkuk span s the entirety of the system including uppermost abdomen and lung bases. All CT scans are performed using dose optimization technique as appropriate and may include automated exposure control or mA/KV adjustment according to patient size. FINDINGS: No hydronephrosis is present and no obstructing ureteral calculi. No suspicious renal mass es. Isodense masses and pyelonephritis are not excluded on a stone protocol CT scan. No significant a drenal finding. No urinary bladder suspicious finding. Uterus and ovaries show no suspicious findings . No focal liver lesions seen on noncontrast imaging. There is a subtle nodular capsule to the liver wh ich could indicate cirrhosis or other diffuse hepatic parenchymal disease. This needs clinical correl ation. Cholecystectomy clips are present with no abnormal biliary tree dilatation. No splenic or panc reatic abnormality seen. No stomach or small bowel abnormality. There is moderate stool volume in the colon from cecum to mid descending colon. The appendix is unremarkable. Patient has a mild diverticulosis in the sigmoid and proximal rectum portions. There is a 5.5 centimeter mass component of the rectosigmoid junction prese nt. While this could be part of a diverticulitis process. Finding is more concerning for primary colo n malignancy. There is minimal stranding and a few small lymph nodes in the adjacent fat. No bulky lymphadenopathy. No suspicious hernia findings identifiable. No free air, free fluid or infl ammatory stranding. Disc and bone degenerative changes are present. L5 pars defect present with minimal anterior subluxat ion. IMPRESSION: A 5.5 centimeter mass in the rectosigmoid junction portion of the colon is present. Whil e this is potentially a mass complex from acute/chronic diverticulitis, primary differential consider ation is colon malignancy. No abscess, free air or surgically emergent finding. No acute or EVIDENCE CUSTODIAN finding. Liver findings are concerning for cirrhosis or diffuse hepatic parenchymal disease. This needs clinic al correlation. Isodense masses and pyelonephritis are not excluded on stone protocol technique.
[2022-08-06] MEDS ORDERED: TAMSULOSIN 0.4 MG SR CAP ONE (15:29)
[2022-08-06] MEDS ORDERED: KETOROLAC 30 MG/ML INJ ONE (15:29)
[2022-08-06] MEDS ORDERED: MAGNESIUM OXIDE 400 MG TAB ONE (15:29)
[2022-08-06] MEDS ORDERED: HYDROCODONE/APAP 10/325 TAB ONE (15:29)
[2022-08-06] MEDS ORDERED: ONDANSETRON 4 MG (ODT) TAB ONE (15:30)
--- NOTE | 2022-08-06 15:51 | EDPHYS ---
Physician Documentation [facility] Name: Stacey Sesay Age: 51 yrs Sex: Female : 1970 Arrival Date: 08/06/2022 Time: 13:40 Bed 11 Private MD: ED Physician Peter Welsh HPI: 08/06 14:09 This 51 yrs old Female presents to ER via Ambulatory with complaints of Flank Pain, snw Nausea. 14:09 The patient complains of pain in the left mid back. The pain radiates to the low back snw area and left mid back. Onset: The symptoms/episode began/occurred suddenly, 3 hour(s) ago, and became persistent. Associated signs and symptoms: Pertinent positives: nausea. Severity of pain: At its worst the pain was incapacitating just prior to arrival. The patient has experienced a previous episode, approximately 1.5 years ago. The patient has not recently seen a physician, [facility]. Historical: - Allergies: 14:00 No Known Allergies; ss - PMHx: 14:00 Aneurysm; Seizures; ss - PSHx: 14:00 Cholecystectomy; ss - Immunization history:: Client reports receiving the 2nd dose of the Covid vaccine. - Social history:: Smoking status: Reported history of juuling and/or vaping. ROS: 14:08 Constitutional: Negative for fever, chills, and weight loss, Eyes: Negative for injury, snw pain, redness, and discharge, ENT: Negative for injury, pain, and discharge, Neck: Negative for injury, pain, and swelling, Cardiovascular: Negative for chest pain, palpitations, and edema, Respiratory: Negative for shortness of breath, cough, wheezing, and pleuritic chest pain, : Negative for injury, bleeding, discharge, and swelling, MS/Extremity: Negative for injury and deformity, Skin: Negative for injury, rash, and discoloration, Neuro: Negative for headache, weakness, numbness, tingling, and seizure, Psych: Negative for depression, anxiety, suicide ideation, homicidal ideation, and hallucinations. 14:08 Abdomen/GI: Positive for nausea. 14:08 Back: Positive for flank pain, on the left. Exam: 14:07 Head/Face: Normocephalic, atraumatic. Eyes: Pupils equal round and reactive to light, snw extra-ocular motions intact. Lids and lashes normal. Conjunctiva and sclera are non-icteric and not injected. Cornea within normal limits. Periorbital areas with no swelling, redness, or edema. Neck: Trachea midline, no thyromegaly or masses palpated, and no cervical lymphadenopathy. Supple, full range of motion without nuchal rigidity, or vertebral point tenderness. No Meningismus. Chest/axilla: Normal chest wall appearance and motion. Nontender with no deformity. No lesions are appreciated. Cardiovascular: Regular rate and rhythm with a normal S1 and S2. No gallops, murmurs, or rubs. Normal PMI, no JVD. No pulse deficits. Respiratory: Lungs have equal breath sounds bilaterally, clear to auscultation and percussion. No rales, rhonchi or wheezes noted. No increased work of breathing, no retractions or nasal flaring. Abdomen/GI: Soft, non-tender, with normal bowel sounds. No distension or tympany. No guarding or rebound. No evidence of tenderness throughout. 14:07 Skin: Warm, dry with normal turgor. Normal color with no rashes, no lesions, and no evidence of cellulitis. MS/ Extremity: Pulses equal, no cyanosis. Neurovascular intact. Full, normal range of motion. Neuro: Awake and alert, GCS 15, oriented to person, place, time, and situation. Cranial nerves II-XII grossly intact. Motor strength 5/5 in all extremities. Sensory grossly intact. Cerebellar exam normal. Normal gait. 14:07 Constitutional: The patient appears alert, awake, anxious, restless, uncomfortable. 14:07 Back: pain, that is moderate, that is severe, of the left mid back, CVA tenderness, is noted on the left. Vital Signs: 13:59 Pulse 87; Resp 20; Temp 98.7(TE); Pulse Ox 100% on R/A; Weight 78.02 kg; Height 5 ft. 4 ss in. (162.56 cm); Pain 10/10; 14:01 BP 156 / 101; ss 13:59 Body Mass Index 29.52 (78.02 kg, 162.56 cm) ss MDM: 14:02 Patient medically screened. snw 15:52 Data reviewed: vital signs, nurses notes. Data interpreted: Pulse oximetry: on room air snw is 100 %. Interpretation: normal. Counseling: I had a detailed discussion with the patient and/or guardian regarding: the historical points, exam findings, and any diagnostic results supporting the discharge/admit diagnosis, radiology results, the need for outpatient follow up, to return to the emergency department if symptoms worsen or persist or if there are any questions or concerns that arise at home. Special discussion: Based on the patient's Hx, exam, and Dx evaluation, there is no indication for emergent surgery or inpatient Tx. It is understood by the patient/guardian that if the Sx's persist or worsen they need to return immediately for re-evaluation. Based on the history and exam findings, there is no indication for further emergent testing or inpatient evaluation. I discussed with the patient/guardian the need to see the plastic tool maker for further evaluation of the symptoms. I discussed with the patient/guardian the need to see the general surgeon for further evaluation of the symptoms. I discussed with the patient/guardian the need to see the primary care provider for further evaluation of the symptoms. 08/06 14:08 Order name: CT Stone Protocol; Complete Time: 14:53 snw Administered Medications: 15:39 Drug: Ketorolac 60 mg Route: IM; Site: right gluteus; ph 16:00 Follow up: Response: No adverse reaction ph 15:39 Drug: Flomax (tamsulosin) 0.4 mg Route: PO; ph 16:00 Follow up: Response: No adverse reaction ph 15:39 Drug: Magnesium 400 mg Route: PO; ph 16:00 Follow up: Response: No adverse reaction ph 15:40 Drug: Harlan (HYDROcodone-acetaminophen) 10 mg-325 mg 1 tabs Route: PO; ph 16:50 Follow up: Response: No adverse reaction ph 15:40 Drug: Zofran (Ondansetron) 4 mg Route: PO; ph 16:00 Follow up: Response: No adverse reaction ph 16:34 Drug: Lactulose 20 grams Volume: 30 ml; Route: PO; ph 16:40 Follow up: Response: No adverse reaction ph 16:34 Drug: Cipro (ciprofloxacin) 500 mg Route: PO; ph 16:40 Follow up: Response: No adverse reaction ph Disposition: 18:03 Co-signature as Attending Physician, Peter Welsh MD. rt Disposition Summary: 08/06/22 15:50 Discharge Ordered Location: Home snw Condition: Stable snw Diagnosis - Localized swelling, mass and lump, unspecified - colon snw - Constipation snw Followup: snw - With: Emergency Department - When: As needed - Reason: Worsening of condition Followup: snw - With: Private Physician - When: 1 - 2 days - Reason: Recheck today's complaints, Continuance of care, Re-evaluation by your physician Followup: snw - With: Toñito Lyles MD - When: 1 week - Reason: Recheck today's complaints, Continuance of care, Re-evaluation by your physician Followup: snw - With: Sivakumar Gallagher MD - When: 7 - 10 days - Reason: Recheck today's complaints, Continuance of care Discharge Instructions: - Discharge Summary Sheet snw - Colonoscopy, Adult snw - Colon Mass, Adult snw - Colonoscopy, Adult, Care After snw Forms: - Medication Reconciliation Form snw - Thank You Letter snw - Antibiotic Education snw - Prescription Opioid Use snw - Work release form ph Prescriptions: - Lactulose 10 gram/15 mL Oral Solution - take 30 milliliters by ORAL route once daily; 300 milliliter; Refills: 0, snw Product Selection Permitted - Diflucan 150 mg Oral Tablet - take 1 tablet by ORAL route every 2 wks As needed; 2 tablet; Refills: 0, snw Product Selection Permitted - Cipro 500 mg Oral Tablet - take 1 tablet by ORAL route every 12 hours for 7 days; 14 tablet; Refills: 0, snw Product Selection Permitted Signatures: Dispatcher [employer] EDOK Es Shields, DIRECTOR ORACLE DATABASE-C DIRECTOR ORACLE DATABASE-Csnw Kristin Kessler RN RN Karen Swift RN RN Peter Welsh MD MD rt Corrections: (The following items were deleted from the chart) 15:53 15:52 Medical screen evaluation completed. EMTALA emergency medical condition absent. snw snw 15:53 15:52 Medical screen evaluation completed. EMTALA emergency medical condition absent. snw snw
--- NOTE | 2022-08-06 15:51 | ER ---
Nurse's Notes [facility] Name: Stacey Sesay Age: 51 yrs Sex: Female : 1970 Arrival Date: 08/06/2022 Time: 13:40 Bed 11 Private MD: Diagnosis: Localized swelling, mass and lump, unspecified-colon;Constipation Presentation: 08/06 13:59 Chief complaint: Patient states: L flank pain that radiates to suprapubic area that ss began suddenly 3 hours ago, + nausea. Coronavirus screen: Client denies travel out of the [place] in the last 14 days. Ebola Screen: Patient denies exposure to infectious person. Patient denies travel to an Ebola-affected area in the 21 days before illness onset. Initial Sepsis Screen: Does the patient meet any 2 criteria? No. Patient's initial sepsis screen is negative. Does the patient have a suspected source of infection? No. Patient's initial sepsis screen is negative. Risk Assessment: Do you want to hurt yourself or someone else? Patient reports no desire to harm self or others. Onset of symptoms was August 06, 2022. 13:59 Method Of Arrival: Ambulatory ss 13:59 Acuity: MERARY 2 ss Historical: - Allergies: 14:00 No Known Allergies; ss - PMHx: 14:00 Aneurysm; Seizures; ss - PSHx: 14:00 Cholecystectomy; ss - Immunization history:: Client reports receiving the 2nd dose of the Covid vaccine. - Social history:: Smoking status: Reported history of juuling and/or vaping. Screenin:34 [facility] ED Fall Risk Assessment (Adult) History of falling in the last 3 months, ph including since admission No falls in past 3 months (0 pts) Confusion or Disorientation No (0 pts) Intoxicated or Sedated No (0 pts) Impaired Gait No (0 pts) Mobility Assist Device Used No (0 pt) Altered Elimination No (0 pt) Score/Fall Risk Level 0 - 2 = Low Risk Oriented to surroundings. Abuse screen: Denies threats or abuse. Denies injuries from another. Nutritional screening: No deficits noted. Tuberculosis screening: No symptoms or risk factors identified. Assessment: 15:45 General: Appears in no apparent distress. Behavior is calm, cooperative, appropriate ph for age. Pain: Complains of pain in low back area and left mid back. Neuro: Level of Consciousness is awake, alert, obeys commands, Oriented to person, place, time, situation. Cardiovascular: Capillary refill < 3 seconds in bilateral fingers. Respiratory: Airway is patent Respiratory effort is even, unlabored. GI: Abdomen is non-distended, Reports lower abdominal pain, constipation, nausea, vomiting. Derm: Skin is healthy with good turgor. Vital Signs: 13:59 Pulse 87; Resp 20; Temp 98.7(TE); Pulse Ox 100% on R/A; Weight 78.02 kg; Height 5 ft. 4 ss in. (162.56 cm); Pain 10/10; 14:01 BP 156 / 101; ss 13:59 Body Mass Index 29.52 (78.02 kg, 162.56 cm) ss ED Course: 13:40 Patient arrived in ED. am2 13:41 Es Shields FNP-C [facility] snw 13:41 Peter Welsh MD is Attending Physician. snw 14:00 Triage completed. ss 14:00 Arm band placed on right wrist. ss 14:28 CT Stone Protocol In Process Unspecified. EDMS 15:20 Karen Swift, RN is Primary Nurse. ph 15:49 Toñito Lyles MD is Referral Physician. snw 15:50 Sivakumar Gallagher MD is Referral Physician. snw 16:35 Patient has correct armband on for positive identification. Bed in low position. Call ph light in reach. Side rails up X 1. 16:35 No provider procedures requiring assistance completed. Patient did not have IV access ph during this emergency room visit. Administered Medications: 15:39 Drug: Ketorolac 60 mg Route: IM; Site: right gluteus; ph 16:00 Follow up: Response: No adverse reaction ph 15:39 Drug: Flomax (tamsulosin) 0.4 mg Route: PO; ph 16:00 Follow up: Response: No adverse reaction ph 15:39 Drug: Magnesium 400 mg Route: PO; ph 16:00 Follow up: Response: No adverse reaction ph 15:40 Drug: Cameron (HYDROcodone-acetaminophen) 10 mg-325 mg 1 tabs Route: PO; ph 16:50 Follow up: Response: No adverse reaction ph 15:40 Drug: Zofran (Ondansetron) 4 mg Route: PO; ph 16:00 Follow up: Response: No adverse reaction ph 16:34 Drug: Lactulose 20 grams Volume: 30 ml; Route: PO; ph 16:40 Follow up: Response: No adverse reaction ph 16:34 Drug: Cipro (ciprofloxacin) 500 mg Route: PO; ph 16:40 Follow up: Response: No adverse reaction ph Medication: 16:35 VIS not applicable for this client. ph Outcome: 15:50 Discharge ordered by MD. daily 16:35 Discharged to home ambulatory, with family. ph 16:35 Condition: stable 16:35 Discharge instructions given to patient, family, Instructed on discharge instructions, follow up and referral plans. medication usage, Demonstrated understanding of instructions, follow-up care, medications, Prescriptions given X 3. 16:38 Patient left the ED. ph Signatures: Dispatcher [employer] EDMS Es Shields, PRODUCTION PATTERN MAKER-C PRODUCTION PATTERN MAKER-Csnw Kristin Kessler RN RN Karen Swift RN RN Chantal Nava Corrections: (The following items were deleted from the chart) 14:19 13:59 Acuity: MERARY 3 ss ss
[2022-08-06] MEDS ORDERED: LACTULOSE 20 GM/30 ML UCUP ONE (16:23)
[2022-08-06] MEDS ORDERED: CIPROFLOXACIN HCL 500 MG TAB ONE (16:23)
[2022-08-06 16:44] VITALS: TEMP 98.7; O2SAT 100
[2022-08-06 16:45] VITALS: BP 156/101
== END 2022-08-06 16:38 | disposition home or self-care (01) ==
LOC: ER 13:33
DX: K59.00 Constipation, unspecified (principal); R22.9 Localized swelling, mass and lump, unspecified
CPT/HCPCS: 74176; 76377; Q0162

== ENCOUNTER 2022-12-17 11:14 | Emergency (ER) | payer OTHER ==
--- OUTSIDE RECORDS SUMMARY | 2022-12-17 11:18 | XMS REPORT | Continuity of Care Document ---
:1970 Author Organization [facility] t Address [address] [facility] [address] [place] [id number] Care Team Providers Name Role Phone YEVGENIY QUEEN Attending Clinician Unavailable CIPRIANO_David Attending Clinician Unavailable Omer Delgadillo Attending Clinician Unavailable RADHA Attending Clinician Unavailable Es Shields Attending Clinician [phone] BLANCHE CUEVAS Attending Clinician Unavailable CIPRIANO_F Admitting Clinician Unavailable RADHA Admitting Clinician Unavailable Payers Payer Name Policy Type Policy Number Effective Date Expiration Date S wilfredo [employer] MP CVS 9 [id number] 2022 00:00:00 SILVER 2: 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 Allergies, Adverse Reactions, Alerts This patient has no known allergies or adverse reactions. Social History Smoking Status Start Date Stop Date Source Former Smoker [facility] Medications Ordered Filled Start Stop Current Ordering Indication Dosage Frequency Signature Comments Components Source Medication Medication Date Date Medication? Clinician (SIG) Name Name amoxicillin amoxicillin No 1 Q12H amoxicilli [place] 500 500 n 500 Communi mg-potassiu mg-potassiu [...] days. chlorhexidi chlorhexidi No 15mL BID chlorhexid [place] ne ne ine Communi gluconate gluconate gluconate ty 0.12 % 0.12 % 0.12 % Hospita mouthwash mouthwash mouthwash l Place [address] 15 Clinics twice a day twice a day mL twice a by mucous by mucous day by membrane membrane mucous route. route. membrane route. tramadol 50 tramadol 50 No 1 Q6H tramadol [place] mg tablet mg tablet 50 mg Comm [...] Name COVID-19, mRNA, COVID-19, mRNA, 2021-04-29 Completed [facility] LNP-S, PF, 100 LNP-S, PF, 100 00:00:00 [facility] mcg/0.5 mL dose mcg/0.5 mL dose Vital Signs Vital Name Observation Time Observation Value Comments Source BP Diastolic 2021-05-24 00:00:00 94 mm[Hg] [facility] s Height 2021-05-24 00:00:00 64 [in_i] [facility] s BMI (Body Mass 2021-05-24 00:00:00 31.1 kg/m2 [facility] Index) [facility] s BP Systolic 2021-05-24 00:00:00 147 mm[Hg] [facility] s Body Weight 2021-05-24 00:00:00 2902.4 [oz_av] [facility] s Procedures Procedure Date / Time Performing Clinician Source Performed MAMMO, screening, digital, 2021-05-24 00:00:00 S [facility] Cholecystectomy [facility] Plan of Care Planned Activity Planned Date Details Comments Source Diagnostic Test 2021-05-24 CBC w/ auto diff [facility] Pending 00:00:00 [code = CBC w/ Hospital Clin ics auto diff] Diagnostic Test 2021-05-24 TSH, serum, reflex [facility] Pending 00:00:00 free T4 [code = Hospital Cli nics TSH, serum, reflex free T4] Diagnostic Test 2021-05-24 CMP, serum or [place] Comm [facility] Pending 00:00:00 plasma [code = Hospital Clin ics CMP, serum or plasma] Diagnostic Test 2021-05-24 lipids, total, [place] Com munity Pending 00:00:00 serum [code = Hospital Clini cs lipids, total, serum] Encounters Start End Encounter Admission Attending Care Care Encounter Source Date/Time Date/Time Type Type Clinicians Facility Department ID 2023-01-06 2023-01-06 Outpatient SOBEIDA QUEEN [id number] [place] 14:00:00 14:00:00 YEVGENIY mroeno 2022-12-08 2022-12-08 Outpatient CHRETIEN_F [facility] [id number] [place] 00:00:00 00:00:00 0501 [facility] 2022-08-07 2022-08-07 Emergency ER Delgadillo, [facility] [id number] [place] 11:04:00 17:33:00 Omer [id number] [facility] 2021-05-24 2021-05-24 Outpatient WATERS_S [facility] 2020 [place] 09:45:00 09:45:00 1015 [facility] 2021-05-24 2021-05-24 Outpatient [facility] [id number] 00:00:00 00:00:00 Es [id number] 2021-05-24 2021-05-24 [facility] [place] - [place] [id number] 15 [place] 00:00:00 00:00:00 Shields [facility] uni 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 2021-05-23 2021-05-23 Outpatient WATERS_S [facility] 2020 [place] 09:34:00 09:34:00 1014 Commun i ty Hospita l Clinics 1999-04-25 1999-04-25 Emergency ER UGOLENA, [facility] [id number] [place] 07:39:00 09:25:00 BLANCHE [id number] [facility] Results This patient has no known results.
[2022-12-17 12:12] LABS: Urine Bacteria None Seen /HPF (<20); Urine Bilirubin NEGATIVE (Negative); Urine Blood Negative (Negative); Urine Clarity Turbid (Clear); Urine Color Light-Yellow (Yellow); Urine Glucose NEGATIVE (Negative); Urine Protein NEGATIVE (Negative); Urine RBC <5 /HPF (None Seen); Urine Urobilinogen Normal (Normal)
[2022-12-17] MEDS ORDERED: MORPHINE 4 MG/ML SYR ONE (12:13)
[2022-12-17] MEDS ORDERED: ONDANSETRON 4 MG/2 ML VIAL ONE ×2 (12:13→15:11)
[2022-12-17] MEDS ORDERED: NA CHLORIDE 0.9% 1,000 ML ONE (12:13)
[2022-12-17 12:28] LABS: Absolute Lymphocytes (CBC) 2.5 K/uL (0.7-4.9); Hematocrit 40.2 % (36.0-45.0); Lymphocytes % 33.4 % (15.3-44.8); MCV 97.1 fL (80-100); MPV 8.2 fL (7.6-11.3); RBC Red Blood Cell Count 4.14 M/uL (3.86-4.86)
[2022-12-17 12:46] LABS: Albumin 3.2 g/dL (3.4-5.0); Bilirubin Total 0.3 mg/dL (0.2-1.0); Protein, Total 8.1 g/dL (6.4-8.2)
[2022-12-17] MEDS ORDERED: HYDROMORPHONE HCL 0.5 MG/0.5 ML INJ ONE (13:08)
--- NOTE | 2022-12-17 13:32 | RAD REPORT ---
EXAM DESCRIPTION: CT - Chest For Pe Angio - 12/17/2022 1:16 pm CLINICAL HISTORY: Chest pain. sob, left sided pain COMPARISON: Abdomen Pelvis W Contrast dated 12/17/2022 TECHNIQUE: CT angiogram of the pulmonary arteries was performed with MIP. All CT scans are performed using dose optimization technique as appropriate and may include automated exposure control or mA/KV adjustment according to patient size. FINDINGS: No evidence of pulmonary thromboembolism. No acute aortic finding demonstrated. Mild COPD. No significant pericardial or pleural fluid. No concerning bony finding. IMPRESSION: No evidence of pulmonary thromboembolism. Mild COPD.
--- NOTE | 2022-12-17 13:40 | RAD REPORT ---
EXAM DESCRIPTION: CTAbdomen Pelvis W Contrast - 12/17/2022 1:15 pm CLINICAL HISTORY: Abdominal pain. left flank pain COMPARISON: Stone Protocol dated 08/06/2022 TECHNIQUE: Biphasic CT imaging of the abdomen and pelvis was performed with 100 ml non-ionic IV cont rast. All CT scans are performed using dose optimization technique as appropriate and may include automated exposure control or mA/KV adjustment according to patient size. FINDINGS: The lung bases are clear.Cholecystectomy clips. The liver, spleen, pancreas, adrenal glands and kidneys are within normal limits. No bowel obstruction, free air, free fluid or abscess. There is a 5 cm mass lesion in the sigmoid col on, highly likely represent a colonic malignancy. The appendix is normal. 5 mm pericolonic lymph nod e. No suspicious bony findings. IMPRESSION: 5 cm mass in the sigmoid colon likely neoplastic. Recommend direct visualization with co lonoscopy.
[2022-12-17] MEDS ORDERED: LORazepam 2 MG/ML VIAL ONE (14:13)
--- NOTE | 2022-12-17 15:05 | ER ---
Nurse's Notes [facility] Name: Stacey Sesay Age: 52 yrs Sex: Female : 1970 Arrival Date: 12/17/2022 Time: 11:14 Bed 14 Private MD: Diagnosis: Mass of the colon Presentation: 12/17 11:39 Chief complaint: Patient states: she is having left sided flank pain that radiates to ap3 her left lower abdomen for the last three days. Coronavirus screen: At this time, the client does not indicate any symptoms associated with coronavirus-19. Ebola Screen: No symptoms or risks identified at this time. Initial Sepsis Screen: Does the patient meet any 2 criteria? No. Patient's initial sepsis screen is negative. Does the patient have a suspected source of infection? No. Patient's initial sepsis screen is negative. Risk Assessment: Do you want to hurt yourself or someone else? Patient reports no desire to harm self or others. Onset of symptoms was December 14, 2022. 11:39 Method Of Arrival: Wheelchair ap3 11:39 Acuity: MERARY 3 ap3 Triage Assessment: 11:41 General: Appears uncomfortable, Behavior is uncooperative. Pain: Complains of pain in ap3 left low back Pain radiates to left lower quadrant Pain currently is 10 out of 10 on a pain scale. Pain began gradually, 2-3 days ago. Neuro: Level of Consciousness is awake, alert, obeys commands, Oriented to person, place, time, situation. Cardiovascular: Patient's skin is warm and dry. Respiratory: Airway is patent Respiratory effort is even, unlabored, Respiratory pattern is regular, symmetrical. GI: Reports nausea, vomiting. : Reports pain in bilateral flank(s). Historical: - Allergies: 11:41 No Known Allergies; ap3 - Home Meds: 11:41 None [Active]; ap3 - PMHx: 11:41 Aneurysm; Seizures; ap3 - PSHx: 11:41 Cholecystectomy; ap3 - Immunization history:: Client reports receiving the 2nd dose of the Covid vaccine. - Social history:: Smoking status: Reported history of juuling and/or vaping. Screenin:42 [facility] ED Fall Risk Assessment (Adult) History of falling in the last 3 months, ap3 including since admission No falls in past 3 months (0 pts). Abuse screen: Denies threats or abuse. Nutritional screening: No deficits noted. Tuberculosis screening: No symptoms or risk factors identified. Assessment: 12:15 Reassessment: Patient appears in no apparent distress at this time. Patient and/or mb9 family updated on plan of care and expected duration. Pain level reassessed. Patient is alert, oriented x 3, equal unlabored respirations, skin warm/dry/pink. General: Appears in no apparent distress. uncomfortable, Behavior is calm, cooperative. Pain: Complains of pain in abdomen and left low back. Neuro: Level of Consciousness is awake, alert, obeys commands, Oriented to person, place, time, situation. Respiratory: Airway is patent Respiratory effort is even, unlabored, Respiratory pattern is regular, symmetrical. GI: Abdomen is flat, non-distended, Reports nausea. : No deficits noted. 13:07 General: Appears uncomfortable, Behavior is crying. Pain: Complains of pain in left mb9 lower quadrant Pain radiates to back and left low back Pain currently is 10 out of 10 on a pain scale. Quality of pain is described as stabbing, throbbing, Pain began suddenly, Is continuous. Neuro: Pedraza Agitation-Sedation Scale (RASS): 0 - Alert and Calm Level of Consciousness is awake, alert, obeys commands, Oriented to person, place, time, situation. Cardiovascular: Patient's skin is warm and dry. Respiratory: Airway is patent Respiratory effort is even, unlabored, Respiratory pattern is regular, symmetrical. GI: Abdomen is flat, non-distended, Patient currently denies nausea, vomiting. Derm: Skin is pink, warm \T\ dry. Musculoskeletal: Range of motion: intact in all extremities. 13:46 Reassessment: Patient and/or family updated on plan of care and expected duration. Pain mb9 level reassessed. Patient is alert, oriented x 3, equal unlabored respirations, skin warm/dry/pink. Patient states feeling better. Patient states symptoms have improved. 15:34 Reassessment: No changes from previously documented assessment. Patient and/or family mb9 updated on plan of care and expected duration. Pain level reassessed. Patient is alert, oriented x 3, equal unlabored respirations, skin warm/dry/pink. Vital Signs: 11:39 BP 137 / 108; Pulse 80; Resp 17; Temp 98.8; Pulse Ox 99% ; Weight 76.66 kg; Pain 10/10; ap3 12:28 BP 134 / 89; Pulse 84; Resp 18; Pulse Ox 98% on R/A; mb9 13:06 BP 138 / 90; Pulse 88; Resp 18; Pulse Ox 100% ; Pain 10/10; mb9 14:39 BP 135 / 85; Pulse 78; Resp 16; Pulse Ox 98% on R/A; mb9 15:34 BP 138 / 74; Pulse 68; Resp 15; Pulse Ox 98% on R/A; mb9 11:39 Pain Scale: Adult ap3 13:06 Pain Scale: Adult mb9 ED Course: 11:20 Patient arrived in ED. rg4 11:21 Malik Jolly PA is PHCP. jmm 11:21 Peter Welsh MD is Attending Physician. jmm 11:41 Triage completed. ap3 11:42 Arm band placed on right wrist. ap3 11:56 Adeola Goode, RN is Primary Nurse. db 12:21 Inserted saline lock: 20 gauge in right antecubital area, using aseptic technique. mb9 13:08 No provider procedures requiring assistance completed. mb9 13:17 CT Abd/Pelvis - IV Contrast Only In Process Unspecified. EDMS 13:18 CT Chest For PE Angio In Process Unspecified. EDMS 15:35 IV discontinued, intact, bleeding controlled, No redness/swelling at site. Pressure mb9 dressing applied. Administered Medications: 12:15 Drug: NS 0.9% IV 1000 ml Route: IV; Rate: 1 bolus; Site: right antecubital; mb9 12:15 Drug: Ondansetron IVP 4 mg Route: IVP; Site: right antecubital; mb9 12:15 Drug: morphine IVP or IV 4 mg Route: IVP; Infused Over: 4 mins; Site: right antecubital;mb9 13:06 Drug: HYDROmorphone IVP 0.5 mg Route: IVP; Site: right antecubital; mb9 15:20 Follow up: Response: No adverse reaction mb9 14:10 Drug: Ativan IVP 1 mg Route: IVP; Site: right antecubital; mb9 15:21 Follow up: Response: No adverse reaction mb9 15:20 Drug: Ondansetron IVP 4 mg Route: IVP; Site: right antecubital; mb9 Medication: 14:39 VIS not applicable for this client. mb9 Outcome: 15:04 Discharge ordered by . rima 15:34 Discharged to home via wheelchair. mb9 15:34 Condition: stable 15:34 Discharge instructions given to patient, Instructed on discharge instructions, follow up and referral plans. Demonstrated understanding of instructions, follow-up care, medications, Prescriptions given X 3. 15:35 Patient left the ED. mb9 Signatures: Dispatcher [employer] EDMS Malik Jolly PA PA jmm Garcia, Rubi rg4 Chantal Aggarwal RN RN ap3 Adeola Goode RN RN La Nena Tapia RN RN mb9
--- NOTE | 2022-12-17 15:05 | EDPHYS ---
Physician Documentation [facility] Name: Stacey Sesay Age: 52 yrs Sex: Female : 1970 Arrival Date: 12/17/2022 Time: 11:14 Bed 14 Private MD: TAI Physician Peter Welsh HPI: 12/17 11:25 This 52 yrs old Female presents to ER via Wheelchair with complaints of Back Pain. [facility] 11:25 The patient presents with pain that is acute. The symptoms are located in the left m flank. Onset: The symptoms/episode began/occurred gradually, 3 day(s) ago. The pain radiates to the abdomen. Associated signs and symptoms: Pertinent negatives: fever. This is a 52 year old female with a history of epilepsy, seizures that presents to the ED with complaints of left flank pain radiating into her llq. Previously diagnosed with a mass to the colon. Denies vomiting, but states having some nausea. Also complains of sob. . Historical: - Allergies: 11:41 No Known Allergies; ap3 - Home Meds: 11:41 None [Active]; ap3 - PMHx: 11:41 Aneurysm; Seizures; ap3 - PSHx: 11:41 Cholecystectomy; ap3 - Immunization history:: Client reports receiving the 2nd dose of the Covid vaccine. - Social history:: Smoking status: Reported history of juuling and/or vaping. ROS: 11:25 Constitutional: Negative for fever, chills, and weight loss, Cardiovascular: Negative jmm for chest pain, palpitations, and edema, Respiratory: Negative for shortness of breath, cough, wheezing, and pleuritic chest pain. 11:25 Abdomen/GI: Positive for abdominal pain. 11:25 All other systems are negative. Exam: 11:25 Constitutional: This is a well developed, well nourished patient who is awake, alert, jmm and in no acute distress. Head/Face: atraumatic. Eyes: EOMI, no conjunctival erythema appreciated ENT: Moist Mucus Membranes Neck: Trachea midline, Supple Chest/axilla: Normal chest wall appearance and motion. Cardiovascular: Regular rate and rhythm. No edema appreciated Respiratory: Normal respirations, no respiratory distress appreciated 11:25 Back: Normal ROM Skin: General appearance color normal MS/ Extremity: Moves all extremities, no obvious deformities appreciated, no edema noted to the lower extremities Neuro: Awake and alert Psych: Behavior is normal, Mood is normal, Patient is cooperative and pleasant 11:25 Abdomen/GI: Inspection: abdomen appears normal, Bowel sounds: normal, Palpation: soft, moderate abdominal tenderness, in the left upper quadrant and left lower quadrant. 11:25 Back: CVA tenderness, that is moderate, is noted on the left. Vital Signs: 11:39 BP 137 / 108; Pulse 80; Resp 17; Temp 98.8; Pulse Ox 99% ; Weight 76.66 kg; Pain 10/10; ap3 12:28 BP 134 / 89; Pulse 84; Resp 18; Pulse Ox 98% on R/A; mb9 13:06 BP 138 / 90; Pulse 88; Resp 18; Pulse Ox 100% ; Pain 10/10; mb9 14:39 BP 135 / 85; Pulse 78; Resp 16; Pulse Ox 98% on R/A; mb9 15:34 BP 138 / 74; Pulse 68; Resp 15; Pulse Ox 98% on R/A; mb9 11:39 Pain Scale: Adult ap3 13:06 Pain Scale: Adult mb9 MDM: 11:25 Patient medically screened. [facility] 14:39 Differential diagnosis: Basilar Pneumonia Metastatic Disease Peptic Ulcer [facility] Pyelonephritis Ureterolithiasis. Data reviewed: vital signs, nurses notes, lab test result(s). 15:52 ED course: I discussed the patient with colorectal surgery who will follow with the [facility] patient outpatient. Patient and family given strict return precautions. Pain has decreased in the ED. Patient understood and agrees plan of care. 12/17 11:27 Order name: CBC with Diff; Complete Time: 12:34 [facility] 12/17 11:27 Order name: CMP; Complete Time: 12:50 [facility] 12/17 11:27 Order name: Lipase; Complete Time: 12:50 [facility] 12/17 11:27 Order name: Test, Urine; Complete Time: 12:14 [facility] 12/17 11:27 Order name: Urinalysis w/ reflexes; Complete Time: 12:13 [facility] 12/17 12:13 Order name: CT Abd/Pelvis - IV Contrast Only; Complete Time: 13:43 [facility] 12/17 12:13 Order name: CT Chest For PE Angio; Complete Time: 13:38 [facility] 12/17 11:27 Order name: IV Saline Lock; Complete Time: 12:20 [facility] 12/17 11:27 Order name: Labs collected and sent; Complete Time: 12:20 [facility] Administered Medications: 12:15 Drug: NS 0.9% IV 1000 ml Route: IV; Rate: 1 bolus; Site: right antecubital; mb9 12:15 Drug: Ondansetron IVP 4 mg Route: IVP; Site: right antecubital; mb9 12:15 Drug: morphine IVP or IV 4 mg Route: IVP; Infused Over: 4 mins; Site: right antecubital;mb9 13:06 Drug: HYDROmorphone IVP 0.5 mg Route: IVP; Site: right antecubital; mb9 15:20 Follow up: Response: No adverse reaction mb9 14:10 Drug: Ativan IVP 1 mg Route: IVP; Site: right antecubital; mb9 15:21 Follow up: Response: No adverse reaction mb9 15:20 Drug: Ondansetron IVP 4 mg Route: IVP; Site: right antecubital; mb9 Disposition: 18:39 Co-signature as Attending Physician, Peter Welsh MD I reviewed the patient's care rt provided by the Advanced Practice Provider and agree with the diagnosis and treatment plan. Disposition Summary: 12/17/22 15:04 Discharge Ordered Location: Home [facility] Condition: Stable [facility] Diagnosis - Mass of the colon [facility] Followup: [facility] - With: Private Physician - When: 2 - 3 days - Reason: Recheck today's complaints, Continuance of care, Re-evaluation by your physician Discharge Instructions: - Discharge Summary Sheet [facility] - Colon Mass, Adult [facility] Forms: - Medication Reconciliation Form [facility] - Thank You Letter [facility] - Antibiotic Education [facility] - Prescription Opioid Use [facility] Prescriptions: - acetaminophen-codeine 300-15 mg Oral tablet - take 2 tablet by ORAL route every 4 hours As needed; 30 tablet; Refills: 0, [facility] Product Selection Permitted - ondansetron 4 mg Oral Tablet,disintegrating - take 1 tablet by ORAL route every 4 to 6 hours As needed; 30 tablet; Refills: [facility] 0, Product Selection Permitted - Ativan 1 mg Oral Tablet - take 1 tablet by ORAL route every 8 hours As needed; 20 tablet; Refills: 0, [facility] Product Selection Permitted Signatures: Dispatcher [employer] Malik Yeager PA PA jmm Prokisch, Amanda RN RN ap3 La Nena Segovia RN RN mb9 Peter Welsh MD MD rt
[2022-12-17 15:49] VITALS: TEMP 98.8
[2022-12-17 16:06] VITALS: O2SAT 98
[2022-12-17 16:07] VITALS: BP 138/74
== END 2022-12-17 15:35 | disposition home or self-care (01) ==
LOC: ER 11:14
DX: K63.89 Other specified diseases of intestine (principal)
CPT/HCPCS: 85025; 81001; 36415; 81025; 83690; 80053; 71275; 74177; Q9967; J1170; J2405 ×2; J7030

== ENCOUNTER 2023-01-15 20:53 | Emergency (ER) | payer OTHER ==
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
--- NOTE | 2023-01-15 22:08 | ER ---
Nurse's Notes [facility] Name: Stacey Sesay Age: 52 yrs Sex: Female : 1970 Arrival Date: 01/15/2023 Time: 20:53 Bed IW2 Private MD: Diagnosis: Presentation: 01/15 20:55 Note patient called from [facility], currently in restroom. pf1 21:05 Chief complaint: Patient states: generalized abdominal pain of 10,onset 2 hours ago pf1 with diarrhea and vomiting,onset 30 minutes. Patient stated completed a colon prep this AM for colonoscopy tomorrow for a blockage. Ebola Screen: Patient negative for fever greater than or equal to 101.5 degrees Fahrenheit, and additional compatible Ebola Virus Disease symptoms. Initial Sepsis Screen: Does the patient meet any 2 criteria? No. Patient's initial sepsis screen is negative. Does the patient have a suspected source of infection? No. Patient's initial sepsis screen is negative. Risk Assessment: Do you want to hurt yourself or someone else? Patient reports no desire to harm self or others. 21:05 Method Of Arrival: Wheelchair pf1 21:05 Acuity: MERARY 3 pf1 Vital Signs: 21:05 BP 123 / 86; Pulse 92; Resp 18; Temp 98.2; Pulse Ox 100% on R/A; Weight 77.11 kg; pf1 Height 5 ft. 8 in. ; Pain 10/10; 21:05 Body Mass Index 25.85 (77.11 kg, 172.72 cm) pf1 21:05 Pain Scale: Adult pf1 ED Course: 20:58 Patient arrived in ED. kj1 21:11 Triage completed. pf1 21:36 Tony Delcid PA is PHCP. cp 21:36 Torrey Huddleston MD is Attending Physician. cp Administered Medications: No medications were administered Outcome: 21:50 Eloped from waiting room, post triage evaluation and consult. Patient stated is feeling pf1 better 21:50 Condition: improved pf1 22:07 Patient left the ED. pf1 Signatures: Tony Delcid PA PA cp Jackson, Kandis kj1 Mari Brown RN RN pf1
[2023-01-15 22:18] VITALS: BP 123/86; TEMP 98.2; O2SAT 100
--- NOTE | 2023-01-16 22:07 | EDPHYS ---
Physician Documentation [facility] Name: Stacey Sesay Age: 52 yrs Sex: Female : 1970 Arrival Date: 01/15/2023 Time: 20:53 Bed IW2 Private MD: ED Physician Torrey Huddleston Vital Signs: 01/15 21:05 BP 123 / 86; Pulse 92; Resp 18; Temp 98.2; Pulse Ox 100% on R/A; Weight 77.11 kg; pf1 Height 5 ft. 8 in. ; Pain 10; 21:05 Body Mass Index 25.85 (77.11 kg, 172.72 cm) pf1 21:05 Pain Scale: Adult pf1 MDM: 21:36 Patient medically screened. cp 22:10 ED course: patient left ED prior to evaluation by provider. cp Administered Medications: No medications were administered Disposition Summary: 01/15/23 22:07 Eloped Disposition: post triage evaluation and consult pf1 Reason: feeling better pf1 Signatures: Tony Delcid PA PA cp Mari Brown, RN RN pf1
== END 2023-01-15 22:07 | disposition left against medical advice (07) ==
LOC: ER 20:53
DX: Z53.21 Procedure and treatment not carried out due to patient leaving prior to being seen by health care provider (principal)
CPT/HCPCS: 99281

== ENCOUNTER 2023-01-16 06:45 | Day surgery (SDC) | payer OTHER ==
[2023-01-14 09:09] LABS: Absolute Lymphocytes (CBC) 2.8 K/uL (0.7-4.9); Hematocrit 40.4 % (36.0-45.0); Lymphocytes % 35.7 % (15.3-44.8); MCV 98.3 fL (80-100); MPV 7.8 fL (7.6-11.3); RBC Red Blood Cell Count 4.11 M/uL (3.86-4.86)
[2023-01-14 09:17] LABS: Protime INR 0.96
[2023-01-14 09:28] LABS: Albumin 3.3 g/dL (3.4-5.0); Bilirubin Total 0.5 mg/dL (0.2-1.0); Potassium 3.8 mEq/L (3.5-5.1); Protein, Total 8.3 g/dL (6.4-8.2)
--- NOTE | 2023-01-14 14:32 | EKG ---
Test Date: 2023-01-14 Test Time: 08:43:39 Help Desk Intern: PRATEEK MEASUREMENT RESULTS: Intervals: Rate: 75 [place]: 134 QRSD: 88 QT: 374 QTc: 417 [place]: P: 57 [place]: 134 QRS: 67 T: 47 INTERPRETIVE STATEMENTS: Normal sinus rhythm Normal ECG Compared to ECG 04/08/2016 16:41:04 No significant changes Electronically Signed On 01-14-23 14:32:08 CDT by Justyn Burgos
[2023-01-16] MEDS ORDERED: Ringers Lactate 1,000 ML IV ONE (07:10)
[2023-01-16] MEDS ORDERED: LIDOCAINE 1% MPF 5 ML VIAL ONE (07:40)
[2023-01-16] MEDS ORDERED: propofoL 200 MG/20 ML VIAL IV ONE ×3 (07:40→08:53)
[2023-01-16] MEDS ORDERED: ONDANSETRON 4 MG/2 ML VIAL ONE (09:29)
[2023-01-16] MEDS ORDERED: SIMETHICONE 80 MG TAB PO ONE (10:00)
[2023-01-16 11:00] VITALS: O2SAT 100
[2023-01-16 11:06] VITALS: BP 136/79; TEMP 97.5
== END 2023-01-16 10:11 | disposition home or self-care (01) ==
LOC: OR 06:45
PROVIDERS: ATTEND Surgery
PROC: 0DBN8ZX Excision of Sigmoid Colon, Via Natural or Artificial Opening Endoscopic, Diagnostic (ICD-10-PCS; 2023-01-16)
PROC: 0DBG8ZX Excision of Left Large Intestine, Via Natural or Artificial Opening Endoscopic, Diagnostic (ICD-10-PCS; principal; 2023-01-16 08:00)
DX: K63.89 Other specified diseases of intestine (principal); R19.7 Diarrhea, unspecified; K59.09 Other constipation; K64.8 Other hemorrhoids; K56.699 Other intestinal obstruction unspecified as to partial versus complete obstruction; D12.4 Benign neoplasm of descending colon; K57.32 Diverticulitis of large intestine without perforation or abscess without bleeding
CPT/HCPCS: 93005; 85025; 36415; 86900; 86850; 81025; 85610; 86901; 83605; 88305; 85730; 80053; 45385; J2704 ×3; J2001; J2405; J7120

== ENCOUNTER 2023-06-08 10:50 | Emergency (ER) | payer OTHER ==
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
[2023-06-08 11:17] LABS: Absolute Lymphocytes (CBC) 2.8 K/uL (0.7-4.9); Hematocrit 40.9 % (36.0-45.0); Lymphocytes % 35.2 % (15.3-44.8); MCV 98.3 fL (80-100); MPV 7.9 fL (7.6-11.3); Platelets 222 thou/uL (152-406); RBC Red Blood Cell Count 4.17 M/uL (3.86-4.86)
[2023-06-08] MEDS ORDERED: MORPHINE 4 MG/ML SYR ONE (11:21)
[2023-06-08] MEDS ORDERED: NA CHLORIDE 0.9% 1,000 ML ONE (11:21)
[2023-06-08] MEDS ORDERED: ONDANSETRON 4 MG/2 ML VIAL ONE (11:21)
[2023-06-08 11:34] LABS: Albumin 3.3 g/dL (3.4-5.0); Bilirubin Total 0.3 mg/dL (0.2-1.0); Potassium 3.8 mEq/L (3.5-5.1); Protein, Total 8.5 g/dL (6.4-8.2)
[2023-06-08 12:05] LABS: Specific Gravity 1.005 (1.005-1.030); Specific Gravity < 1.005 (1.005-1.030); Urine Bilirubin NEGATIVE (Negative); Urine Blood Negative (Negative); Urine Clarity Clear (Clear); Urine Color Colorless (Yellow); Urine Glucose NEGATIVE (Negative); Urine Protein NEGATIVE (Negative); Urine Urobilinogen Normal (Normal)
--- NOTE | 2023-06-08 12:32 | RAD REPORT ---
EXAM DESCRIPTION: CT - Abdomen Pelvis W Contrast - 06/08/2023 12:16 pm CLINICAL HISTORY: Abdominal pain COMPARISON: December 2022 and 2018 TECHNIQUE: Computed axial tomography of the abdomen pelvis was obtained. 100 cc Isovue-300 was admin istered intravenously. Oral contrast was not requested which limits evaluation of bowel and appendix All CT scans are performed using dose optimization technique as appropriate and may include automated exposure control or mA/KV adjustment according to patient size. FINDINGS: The liver, spleen, pancreas, right adrenal gland and kidneys appear unremarkable. A small left adrenal nodule without significant change presumably an adenoma Normal appendix. 6 centimeter sigmoid colon exophytic mass appears mildly enlarged. There are several adjacent small l ymph nodes. No ascites. No obstruction IMPRESSION: 6 centimeter sigmoid colon mass probably neoplasm
[2023-06-08] MEDS ORDERED: FAMOTIDINE 20 MG/2 ML VIAL IV ONE (13:32)
[2023-06-08] MEDS ORDERED: LACTULOSE 20 GM/30 ML UCUP ONE (14:07)
--- NOTE | 2023-06-08 14:15 | EDPHYS ---
Physician Documentation [facility] Name: Stacey Sesay Age: 52 yrs Sex: Female : 1970 Arrival Date: 06/08/2023 Time: 10:50 Bed 5 Private MD: ED Physician Hari Contreras HPI: 06/08 11:15 This 52 yrs old Female presents to ER via Ambulatory with complaints of Abdominal Pain. sb4 11:15 The patient presents with abdominal pain right lower quadrant. Onset: The sb4 symptoms/episode began/occurred this morning. The symptoms radiate to the right flank. Associated signs and symptoms: none. The symptoms are described as constant. Modifying factors: The symptoms are alleviated by nothing, the symptoms are aggravated by touching the area. right flank and RLQ pain beginning suddenly this morning. no urinary symptoms, n/v/d, fever. had bowel revision surgery about 5 months ago, trying to avoid colostomy. Historical: - Allergies: 11:13 No Known Allergies; mb9 - Home Meds: 11:13 None [Active]; mb9 - PMHx: 11:13 Aneurysm; Seizures; mb9 - PSHx: 11:13 Cholecystectomy; mb9 - Immunization history:: Adult Immunizations up to date. - Social history:: Smoking status: Patient denies any tobacco usage or history of. ROS: 11:15 Constitutional: Negative for fever, chills, and weight loss, sb4 11:15 Abdomen/GI: Positive for abdominal pain, 11:15 Back: Positive for flank pain, on the right, 11:15 All other systems are negative, Exam: 11:15 Constitutional: This is a well developed, well nourished patient who is awake, alert, sb4 and in no acute distress. Head/Face: Normocephalic, atraumatic. Eyes: Extra-ocular motions intact. Periorbital areas with no swelling, redness, or edema. ENT: Mucous membranes moist. Cardiovascular: Regular rate and rhythm with a normal S1 and S2. Respiratory: Lungs have equal breath sounds bilaterally, clear to auscultation and percussion. No rales, rhonchi or wheezes noted. No increased work of breathing, no retractions or nasal flaring. Skin: Warm, dry with normal turgor. Normal color with no rashes, no lesions, and no evidence of cellulitis. MS/ Extremity: Pulses equal, no cyanosis. Neurovascular intact. Full, normal range of motion. Neuro: Awake and alert, GCS 15, oriented to person, place, time, and situation. Motor strength 5/5 in all extremities. Sensory grossly intact. 11:15 Abdomen/GI: Inspection: abdomen appears normal, Bowel sounds: normal, Palpation: soft, moderate abdominal tenderness, in the right lower quadrant, 11:15 Back: CVA tenderness, that is mild, is noted on the right, Vital Signs: 10:55 BP 134 / 100; Pulse 89; Resp 19; Temp 98.2; Pulse Ox 100% ; Weight 68.04 kg; os 11:16 BP 147 / 90; Pulse 88; Resp 18; Pulse Ox 100% on R/A; mb9 11:58 BP 124 / 86; Pulse 80; Resp 16; Pulse Ox 99% on R/A; mb9 13:22 BP 138 / 95; Pulse 75; Resp 15; Pulse Ox 100% ; jl7 14:28 BP 132 / 76; Pulse 74; Resp 16; Pulse Ox 100% on R/A; mb9 MDM: 10:53 Patient medically screened. sb4 11:15 Differential diagnosis: appendicitis, bowel obstruction, non-specific abd pain, Peptic sb4 Ulcer Disease, Pyelonephritis, Ureterolithiasis, urinary tract infection. 13:54 Data reviewed: vital signs, nurses notes, old medical records, lab test result(s), sb4 radiologic studies, and as a result, I will discharge patient. Consideration of Admission/Observation Escalation of care including admission/observation considered. Management of patient was discussed with the following: Solar Energy Engineer: Dr. Kat, has seen her previously and performed colonoscopy- states she does not have a sigmoid colon mass but a stricture. He reviewed the CT images and believes her right colon is dilated secondary to the stricture with an associated stool burden which is likely causing her pain. He would like her to follow up with him in office tomorrow. I relayed all of this information to the patient, she understands. Counseling: I had a detailed discussion with the patient and/or guardian regarding the historical points, exam findings, and any diagnostic results supporting the discharge/admit diagnosis, the presence of at least one elevated blood pressure reading (>120/80) during this emergency department visit, lab results, radiology results, the need for outpatient follow up, a general surgeon, to return to the emergency department if symptoms worsen or persist or if there are any questions or concerns that arise at home. 06/08 11:02 Order name: CBC with Diff; Complete Time: 11:21 sb4 06/08 11:02 Order name: CMP; Complete Time: 11:37 sb4 06/08 11:02 Order name: Lipase; Complete Time: 11:37 sb4 06/08 11:02 Order name: Test, Urine; Complete Time: 12:08 sb4 06/08 11:02 Order name: Urinalysis w/ reflexes; Complete Time: 12:06 sb4 06/08 11:02 Order name: CT Abd/Pelvis - IV Contrast Only; Complete Time: 12:32 sb4 06/08 11:02 Order name: IV Saline Lock; Complete Time: 11:14 sb4 06/08 11:02 Order name: Labs collected and sent; Complete Time: 11:14 sb4 Administered Medications: 11:10 Drug: NS 0.9% IV 1000 ml IV at 1 bolus Per protocol; 1000 mL bolus Route: IV; Rate: 1 mb9 bolus; Site: right antecubital; 11:10 Drug: Ondansetron IVP 4 mg IVP once; over 2 minutes Route: IVP; Site: right antecubital;mb9 11:57 Follow up: Response: No adverse reaction mb9 11:12 Drug: morphine IVP or IV 4 mg IVP once over 4 mins Route: IVP; Infused Over: 4 mins; mb9 Site: right antecubital; 11:57 Follow up: Response: No adverse reaction mb9 13:21 Drug: Famotidine IVP 20 mg IVP once; dilute with 10 mL 0.9% NaCl; give over 2 minutes jl7 Route: IVP; Site: right antecubital; 14:29 Follow up: Response: No adverse reaction mb9 13:56 Drug: Lactulose PO 20 grams 30 ml PO once Volume: 30 ml; Route: PO; mb9 14:29 Follow up: Response: No adverse reaction mb9 Disposition Summary: 06/08/23 14:14 Discharge Ordered Notes: Location: Home sb4 Problem: new sb4 Symptoms: have improved sb4 Condition: Stable sb4 Diagnosis - Abdominal pain, unspecified sb4 - Constipation sb4 - sigmoid colon stricture sb4 Followup: sb4 - With: Fidencio Kat MD - When: Tomorrow - Reason: Recheck today's complaints, Re-evaluation by your physician Discharge Instructions: - Discharge Summary Sheet sb4 - Abdominal Pain, Adult sb4 Forms: - Work release form sb4 - Medication Reconciliation Form sb4 - Thank You Letter sb4 - Antibiotic Education sb4 - Prescription Opioid Use sb4 - Patient Portal Instructions sb4 - Leadership Thank You Letter sb4 Addendum: 06/10/2023 10:24 I was immediately available for consultation during this patient's visit. I did not e c2 personally see the patient or guide the patient's care.. Signatures: Dispatcher [employer] Melissa Ovalle RN RN jl7 Betty Dejesus PA-C PA-C sb4 La Nena Segovia RN RN mb9 Hari Contreras MD MD ec2
--- NOTE | 2023-06-08 14:15 | ER ---
Nurse's Notes [facility] Name: Stacey Sesay Age: 52 yrs Sex: Female : 1970 Arrival Date: 06/08/2023 Time: 10:50 Bed 5 Private MD: Diagnosis: Abdominal pain, unspecified;Constipation;sigmoid colon stricture Presentation: 06/08 10:55 Chief complaint: Patient states: Patient c/o right lower quadrant abdominal pain since os 5 am this morning. Coronavirus screen: Vaccine status: Patient reports receiving the 2nd dose of the covid vaccine. Client denies travel out of the [place] in the last 14 days. At this time, the client does not indicate any symptoms associated with coronavirus-19. Ebola Screen: No symptoms or risks identified at this time. Initial Sepsis Screen: Does the patient meet any 2 criteria? No. Patient's initial sepsis screen is negative. Does the patient have a suspected source of infection? No. Patient's initial sepsis screen is negative. Risk Assessment: Do you want to hurt yourself or someone else? Patient reports no desire to harm self or others. Onset of symptoms was June 08, 2023. 10:55 Method Of Arrival: Ambulatory os 10:55 Acuity: MERARY 3 os Historical: - Allergies: 11:13 No Known Allergies; mb9 - Home Meds: 11:13 None [Active]; mb9 - PMHx: 11:13 Aneurysm; Seizures; mb9 - PSHx: 11:13 Cholecystectomy; mb9 - Immunization history:: Adult Immunizations up to date. - Social history:: Smoking status: Patient denies any tobacco usage or history of. Screenin:16 [facility] ED Fall Risk Assessment (Adult) History of falling in the last 3 months, mb9 including since admission No falls in past 3 months (0 pts) Confusion or Disorientation No (0 pts) Intoxicated or Sedated No (0 pts) Impaired Gait No (0 pts) Mobility Assist Device Used No (0 pt) Altered Elimination No (0 pt) Score/Fall Risk Level 0 - 2 = Low Risk Oriented to surroundings, Maintained a safe environment, Educated pt \T\ family on fall prevention, incl call for assistance when getting out of bed. Abuse screen: Denies threats or abuse. Nutritional screening: No deficits noted. Tuberculosis screening: No symptoms or risk factors identified. Assessment: 11:15 General: Appears uncomfortable, Behavior is calm, cooperative. Pain: Complains of pain mb9 in abdomen Pain radiates to RLQ and back Pain currently is 8 out of 10 on a pain scale. Quality of pain is described as throbbing, Pain began suddenly, Is continuous. Neuro: Pedraza Agitation-Sedation Scale (RASS): 0 - Alert and Calm Level of Consciousness is awake, alert, obeys commands, Oriented to person, place, time, situation, Appropriate for age. Cardiovascular: Heart tones S1 S2 present Patient's skin is warm and dry. Respiratory: Airway is patent Respiratory effort is even, unlabored, Respiratory pattern is regular, symmetrical. GI: Abdomen is flat, non-distended, Bowel sounds present X 4 quads. Abd is soft Abdomen is tender to palpation in right lower quadrant Reports nausea. : No signs and/or symptoms were reported regarding the genitourinary system. EENT: No signs and/or symptoms were reported regarding the EENT system. Derm: Skin is pink, warm \T\ dry. Musculoskeletal: Range of motion: intact in all extremities. 12:15 Reassessment: No changes from previously documented assessment. Patient and/or family mb9 updated on plan of care and expected duration. Pain level reassessed. Patient is alert, oriented x 3, equal unlabored respirations, skin warm/dry/pink. 13:22 Reassessment: Pt reports nausea/burning, ERP notified, see MAR for orders. jl7 14:28 Reassessment: Patient and/or family updated on plan of care and expected duration. Pain mb9 level reassessed. Patient is alert, oriented x 3, equal unlabored respirations, skin warm/dry/pink. Patient states feeling better. Patient states symptoms have improved. Vital Signs: 10:55 BP 134 / 100; Pulse 89; Resp 19; Temp 98.2; Pulse Ox 100% ; Weight 68.04 kg; os 11:16 BP 147 / 90; Pulse 88; Resp 18; Pulse Ox 100% on R/A; mb9 11:58 BP 124 / 86; Pulse 80; Resp 16; Pulse Ox 99% on R/A; mb9 13:22 BP 138 / 95; Pulse 75; Resp 15; Pulse Ox 100% ; jl7 14:28 BP 132 / 76; Pulse 74; Resp 16; Pulse Ox 100% on R/A; mb9 ED Course: 10:52 Patient arrived in ED. rg4 10:52 Betty Dejesus PA-C [facility] sb4 10:52 Hari Contreras MD is Attending Physician. sb4 10:58 Triage completed. os 11:07 Melissa Kelly, RN is Primary Nurse. jl7 11:13 Primary Nurse role handed off by Melissa Kelly, RN mb9 11:13 La Nena Segovia, GENO is Primary Nurse. mb9 11:13 Arm band placed on. mb9 11:14 Inserted saline lock: 20 gauge in right antecubital area, using aseptic technique. mb9 Blood collected. 11:14 CBC with Diff Sent. mb9 11:14 CMP Sent. mb9 11:14 Lipase Sent. mb9 11:16 Placed in gown. Bed in low position. Call light in reach. Side rails up X 1. Client mb9 placed on continuous cardiac and pulse oximetry monitoring. NIBP monitoring applied. Door closed. Noise minimized. Warm blanket given. 11:17 No provider procedures requiring assistance completed. mb9 11:57 Urinalysis w/ reflexes Sent. mb9 11:57 Test, Urine Sent. mb9 12:18 CT Abd/Pelvis - IV Contrast Only In Process Unspecified. EDMS 14:14 Fidencio Kat MD is Referral Physician. sb4 14:29 IV discontinued, intact, bleeding controlled, No redness/swelling at site. Pressure mb9 dressing applied. Administered Medications: 11:10 Drug: NS 0.9% IV 1000 ml IV at 1 bolus Per protocol; 1000 mL bolus Route: IV; Rate: 1 mb9 bolus; Site: right antecubital; 11:10 Drug: Ondansetron IVP 4 mg IVP once; over 2 minutes Route: IVP; Site: right antecubital;mb9 11:57 Follow up: Response: No adverse reaction mb9 11:12 Drug: morphine IVP or IV 4 mg IVP once over 4 mins Route: IVP; Infused Over: 4 mins; mb9 Site: right antecubital; 11:57 Follow up: Response: No adverse reaction mb9 13:21 Drug: Famotidine IVP 20 mg IVP once; dilute with 10 mL 0.9% NaCl; give over 2 minutes jl7 Route: IVP; Site: right antecubital; 14:29 Follow up: Response: No adverse reaction mb9 13:56 Drug: Lactulose PO 20 grams 30 ml PO once Volume: 30 ml; Route: PO; mb9 14:29 Follow up: Response: No adverse reaction mb9 Medication: 11:17 VIS not applicable for this client. mb9 Outcome: 14:14 Discharge ordered by MD. jimenez 14:29 Discharged to home ambulatory, mb9 14:29 Condition: stable 14:29 Discharge instructions given to patient, Instructed on discharge instructions, follow up and referral plans. Demonstrated understanding of instructions, follow-up care, 14:29 Patient left the ED. mb9 Signatures: Dispatcher [employer] Tangela Hernandez Jahala RN RN jl7 Betty Dejesus PA-C PA-C sb4 La Nena Segovia RN RN mb9 Darshan Tracy RN RN os
[2023-06-08 14:52] VITALS: TEMP 98.2
[2023-06-08 14:55] VITALS: O2SAT 100
[2023-06-08 14:56] VITALS: BP 132/76
[2023-06-09] MEDS ORDERED: NA CHLORIDE 0.9% 1,000 ML ONE (12:37)
[2023-06-09] MEDS ORDERED: ONDANSETRON 4 MG/2 ML VIAL ONE (12:37)
== END 2023-06-08 14:29 | disposition home or self-care (01) ==
LOC: ER 10:50
DX: K59.00 Constipation, unspecified (principal); K56.699 Other intestinal obstruction unspecified as to partial versus complete obstruction
CPT/HCPCS: 85025; 36415; 81025; 81003; 83690; 80053; 74177; 96375; 96374; 99284; Q9967; J2405; J7030

== ENCOUNTER 2023-06-09 11:57 | Emergency (ER) | payer OTHER ==
--- OUTSIDE RECORDS SUMMARY | 2023-06-09 12:00 | XMS REPORT | Continuity of Care Document ---
:[address] [facility] t Address [address] [place] [address] Care Team Providers Name Role Phone VANGIE MOSCOSO Attending Clinician Unavailable LAB90 Attending Clinician Unavailable JONATAN PATRICIA Attending Clinician Unavailable JUAN DAVID GUTIERREZ Attending Clinician Unavailable KENYA ANDERSON Attending Clinician Unavailable ZAID SHARP Attending Clinician Unavailable YEVGENIY QUEEN Attending Clinician Unavailable ZACHARY MOORE Attending Clinician Unavailable RTIO JORGE Attending Clinician Unavailable BLAIRE SEN MEDICAL Attending Clinician Unavailabl e CHRETIEN_F Attending Clinician Unavailable Omer Delgadillo Attending Clinician Unavailable ALYSON_Vy Attending Clinician Unavailable Es Shields Attending Clinician [phone] BLANCHE CUEVAS Attending Clinician Unavailable CHRETIEN_F Admitting Clinician Unavailable WATERS_S Admitting Clinician Unavailable Payers Payer Name Policy Type Policy Number Effective Date Expiration Date S wilfredo [employer] [facility] 9 [id number] 2022 00:00:00 SILVER 2: ARIAN HMO DETECTIVE 94 ON [employer] [id number] Problems Condition Condition Condition Status Onset Resolution [...] from the original. treated in 2007 in [place] Allergies, Adverse Reactions, Alerts This patient has [...] and 2022-12-22 2022-12-22 Smokeless tobacco Luis severovincent Josefyumi exposure 00:00:00 00:00:00 non-user - [...] oral 48 Externa Tablet l Tramadol Yes [id number] 50mg Q.5D Take 1 Ke lsey HCl 5-15 tablet (50 Seybold (ULTRAM) 50 00:00: mg total) - MG oral 00 by mouth 2 Textile Technologist a Tablet times l daily as needed for pain Tramadol Yes [id number] 50mg Q.5D Take 1 Ke lsey HCl 5-15 tablet (50 Seybold (ULTRAM) 50 00:00: mg total) - MG oral 00 by mouth 2 Textile Technologist a Tablet times l daily as needed [...] NEEDED amoxicillin amoxicillin No 1 Q12H amoxicilli Ava 500 500 n 500 Communi mg-potassiu mg-potassiu mg-potassi ty m m [facility] clavulanate clavulanate clavulanat l 125 mg 125 mg e 125 mg Clinics tablet Take tablet Take tablet 1 tablet 1 tablet Take 1 every 12 every 12 tablet hours by hours by every 12 oral route oral route hours by for 10 for 10 oral route days. days. for 10 days. chlorhexidi chlorhexidi No 15mL BID chlorhexid Ava ne ne daryl Communi gluconate gluconate gluconate ty 0.12 % 0.12 % 0.12 % Hospita mouthwash mouthwash mouthwash l Place [address] 15 Clinics twice a day twice a day mL twice a by mucous by mucous day by membrane membrane mucous route. route. membrane route. tramadol 50 tramadol 50 No 1 Q6H tramadol Ava mg tablet mg tablet 50 mg Comm [...] External BP Diastolic 2021-05-24 00:00:00 94 mm[Hg] [facility] Height 2021-05-24 00:00:00 64 [in_i] [facility] BMI (Body Mass 2021-05-24 00:00:00 31.1 kg/m2 [facility] s BP Systolic 2021-05-24 00:00:00 147 mm[Hg] [facility] Body Weight 2021-05-24 00:00:00 2902.4 [oz_av] [facility] s Procedures Procedure Date / Time Performing Clinician Source Performed MAMMO, screening, digital, 2021-05-24 00:00:00 [facility] Cholecystectomy [facility] Plan of Care Planned Activity Planned Date Details Comments Source Diagnostic Test 2021-05-24 CBC w/ auto diff [facility] Pending 00:00:00 [code = CBC w/ Hospital Clin ics auto diff] Diagnostic Test 2021-05-24 TSH, serum, reflex [facility] Pending 00:00:00 free T4 [code = Hospital Cli nics TSH, serum, reflex free T4] Diagnostic Test 2021-05-24 CMP, serum or [facility] Comm unity Pending 00:00:00 plasma [code = Hospital Clin ics CMP, serum or plasma] Diagnostic Test 2021-05-24 lipids, total, [facility] Com munity Pending 00:00:00 serum [code = Hospital Clini cs lipids, total, serum] Encounters Start End Encounter Admission Attending Care Care Encounter Source Date/Time Date/Time Type Type Clinicians Facility Department ID 2023-03-09 2023-03-09 Outpatient BLAIRE MOSCOSO [id number] [place] 10:45:00 10:45:00 VANGIE Seybol d 2023-02-02 2023-02-02 Outpatient LAB90 BLAIRE VIDALES [id number] [place] 15:20:00 15:20:00 Seybol d 2023-02-02 2023-02-02 Outpatient HARSHADBLAIRE [id number] [place] 09:00:00 09:00:00 JONATAN Seybol d 2023-01-16 2023-01-16 Outpatient BLAIRE GUTIERREZ [id number] [place] 15:00:00 15:00:00 JUAN DAVID Seybol d 2023-01-16 2023-01-16 Outpatient BLAIRE ANDERSON [id number] [place] 00:00:00 00:00:00 LASUNDRA Seybo ld 2023-01-16 2023-01-16 Outpatient BLAIRE SHARP [id number] [place] 00:00:00 00:00:00 SHANEIKA Seybo ld 2023-01-06 2023-01-06 Outpatient BLAIRE QUEEN [id number] [place] 14:00:00 14:00:00 YEVGENIY Seybol d 2023-01-06 2023-01-06 Outpatient BLAIRE QUEEN [id number] [place] 00:00:00 00:00:00 YEVGENIY Seybol d 2023-01-01 2023-01-01 Outpatient BLAIRE MOORE [id number] [place] 14:30:00 14:30:00 ZACHARY Seybol d 2023-01-01 2023-01-01 Outpatient BLAIRE GUTIERREZ [id number] [place] 00:00:00 00:00:00 JUAN DAVID Seybol d 2022-12-31 2022-12-31 Outpatient BLAIRE GUTIERREZ [id number] [place] 00:00:00 00:00:00 JUAN DAVID Seybol d 2022-12-31 2022-12-31 Outpatient BLAIRE GUTIERREZ [id number] [place] 00:00:00 00:00:00 JUAN DAVID Seybol d 2022-12-30 2022-12-30 Outpatient ANIABLAIRE BLAIRE [id number] [place] 09:00:00 09:00:00 RITO Seybol d 2022-12-30 2022-12-30 Outpatient PREZAS, BLAIRE BLAIRE [id number] [place] 00:00:00 00:00:00 JUAN DAVID Seybol d 2022-12-26 2022-12-26 Outpatient PREZAS, BLAIRE VIDALES [id number] [place] 00:00:00 00:00:00 JUAN DAVID Seybol d 2022-12-23 2022-12-23 Outpatient PREZAS, BLAIRE VIDALES [id number] [place] 00:00:00 00:00:00 JUAN DAVID Seybol d 2022-12-22 2022-12-22 Outpatient PREZAS, BLAIRE VIDALES [id number] [place] 16:30:00 16:30:00 JUAN DAVID Seybol d 2022-12-17 2022-12-17 Outpatient GROUP, BLAIRE VIDALES [id number] [place] 00:00:00 00:00:00 BLAIRE Seybol d 2022-12-08 2022-12-08 Outpatient CHRETIEN_F [facility] [id number] Ava 00:00:00 00:00:00 0501 [facility] i [facility] 2022-08-07 2022-08-07 Emergency ER Delgadillo, [facility] [id number] [place] 11:04:00 17:33:00 Omer [id number] [facility] 2021-05-24 2021-05-24 Outpatient WATERS_S [facility] [id number] Ava 09:45:00 09:45:00 1015 Commun i ty Hospita [facility] Clinics 2021-05-24 2021-05-24 Outpatient Alyson [facility] [id number] 00:00:00 00:00:00 Es [id number] 2021-05-24 2021-05-24 Es [facility] [place] - Ava [id number] Ava 00:00:00 00:00:00 A[facility]son [facility] 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 2021-05-23 2021-05-23 Outpatient WATERS_S [facility] [id number] Ava 09:34:00 09:34:00 1014 Commun i [facility] 1999-04-25 1999-04-25 Emergency ER MASON [facility] [id number] [place] 07:39:00 09:25:00 BLANCHE [id number] [facility] Results This patient has no known results.
--- NOTE | 2023-06-09 12:36 | RAD REPORT ---
EXAM DESCRIPTION: CTAbdomen Pelvis Wo Contrast - 06/09/2023 12:27 pm CLINICAL HISTORY: worsening abd pain and vomiting COMPARISON: Abdomen Pelvis W Contrast dated 06/08/2023; Abdomen Pelvis W Contrast dated 3; Stone Protocol dated 08/06/2022 TECHNIQUE: CT of the abdomen and pelvis was performed. All CT scans are performed using dose optimization technique as appropriate and may include automated exposure control or mA/KV adjustment according to patient size. FINDINGS: Lower chest: No acute abnormality. Liver: No acute abnormality or suspicious lesions. Biliary: Cholecystectomy Stomach: No significant focal abnormality. Duodenum: No significant focal abnormality. Pancreas: No significant abnormality. Spleen: No significant abnormality. Adrenal: No suspicious lesions. Kidney/ureter: No hydronephrosis. No renal calculi. Retroperitoneum: No retroperitoneal adenopathy. Vascular: No aneurysm. Bowel: Suspected mass at the sigmoid colon is again identified. No bowel obstruction. No perforation or abscess. Peritoneum: No ascites or free air. Bladder: Grossly unremarkable. Reproductive: No adnexal masses. Bones: No acute fracture. Mild disc height loss at L4-5 and moderate disc height loss L5-S1. Multilev el degenerative changes are present in the spine. Other: n/a IMPRESSION: Abnormality at the sigmoid colon which could represent underlying neoplasm again identif ied and unchanged. No perforation, bowel obstruction, or abscess. No significant change since yesterd ay's CT.
[2023-06-09 12:50] LABS: Absolute Lymphocytes (CBC) 0.8 K/uL (0.7-4.9); Lymphocytes % 8.8 % (15.3-44.8); MCV 97.9 fL (80-100); MPV 8.1 fL (7.6-11.3); Platelets 216 thou/uL (152-406); RBC Red Blood Cell Count 4.08 M/uL (3.86-4.86)
[2023-06-09 13:08] LABS: Albumin 3.3 g/dL (3.4-5.0); Bilirubin Total 0.7 mg/dL (0.2-1.0); Potassium 3.4 mEq/L (3.5-5.1); Protein, Total 8.4 g/dL (6.4-8.2)
[2023-06-09 13:37] LABS: Blood Morphology Comment NOT SEEN (NOT SEEN); Platelet Estimate ADEQ; White Blood Cell Scan OK (OK)
--- NOTE | 2023-06-09 13:43 | ER ---
Nurse's Notes [facility] Name: Stacey Sesay Age: 52 yrs Sex: Female : 1970 Arrival Date: 06/09/2023 Time: 11:57 Bed Treatment Private MD: Diagnosis: Abdominal pain, unspecified;Vomiting, unspecified;Colon Mass Presentation: 06/09 12:02 Chief complaint: Diffuse abdominal pain x 2 days, N/V since last night. Coronavirus hb screen: At this time, the client does not indicate any symptoms associated with coronavirus-19. Ebola Screen: No symptoms or risks identified at this time. Initial Sepsis Screen: Does the patient meet any 2 criteria? No. Patient's initial sepsis screen is negative. Does the patient have a suspected source of infection? No. Patient's initial sepsis screen is negative. Risk Assessment: Do you want to hurt yourself or someone else? Patient reports no desire to harm self or others. Onset of symptoms was June 08, 2023. 12:02 Method Of Arrival: Ambulatory hb 12:02 Acuity: MERARY 3 hb Historical: - Allergies: 12:03 No Known Allergies; hb - PMHx: 12:03 Aneurysm; Seizures; hb - PSHx: 12:03 Cholecystectomy; hb - Immunization history:: Adult Immunizations up to date. - Social history:: Smoking status: Patient denies any tobacco usage or history of. - Family history:: not pertinent. - Hospitalizations: : No recent hospitalization is reported. Screenin:45 [facility] ED Fall Risk Assessment (Adult) History of falling in the last 3 months, cp4 including since admission No falls in past 3 months (0 pts) Confusion or Disorientation No (0 pts) Intoxicated or Sedated No (0 pts) Impaired Gait No (0 pts) Mobility Assist Device Used No (0 pt) Altered Elimination No (0 pt) Score/Fall Risk Level 0 - 2 = Low Risk Oriented to surroundings, Maintained a safe environment, Educated pt \T\ family on fall prevention, incl call for assistance when getting out of bed, Hourly rounding (assess needs \T\ fall precautionary measures) done. Abuse screen: Denies threats or abuse. Nutritional screening: No deficits noted. Tuberculosis screening: No symptoms or risk factors identified. Assessment: 12:45 General: Appears in no apparent distress. Behavior is calm, cooperative, appropriate cp4 for age. Pain: Complains of pain in abdomen. GI: Bowel sounds present X 4 quads. Abd is soft and non tender. Vital Signs: 12:02 BP 148 / 91; Pulse 82; Resp 24; Temp 98.9; Pulse Ox 100% on R/A; Weight 68.95 kg; hb Height 5 ft. 4 in. ; Pain 9/10; 14:12 BP 138 / 89; Pulse 81; Resp 20; Pulse Ox 100% ; cp4 12:02 Body Mass Index 26.09 (68.95 kg, 162.56 cm) hb 12:02 Pain Scale: Adult hb ED Course: 11:59 Patient arrived in ED. mg5 12:01 Jasmeet Morris MD is Attending Physician. rn 12:03 Triage completed. hb 12:22 Cira Reis is Primary Nurse. cp4 12:28 CT Abd/Pelvis - Without Contrast In Process Unspecified. EDMS 12:44 CBC with Diff Sent. cp4 12:44 CMP Sent. cp4 12:44 Inserted saline lock: 22 gauge in left antecubital area, using aseptic technique. Blood ds4 collected. 12:45 No provider procedures requiring assistance completed. cp4 12:45 Bed in low position. Call light in reach. Side rails up X 1. cp4 14:10 intact, bleeding controlled, No redness/swelling at site. Pressure dressing applied. cp4 14:10 Provided Education on: abdominal pain. cp4 Administered Medications: 12:44 Drug: NS 0.9% IV 1000 ml IV at 1 bolus Per protocol; 1000 mL bolus Route: IV; Rate: 1 cp4 bolus; Site: left antecubital; 13:30 Follow up: Response: No adverse reaction; IV Status: Completed infusion cp4 12:44 Drug: Ondansetron IVP 4 mg IVP once; over 2 minutes Route: IVP; Site: left antecubital; cp4 13:31 Follow up: Response: No adverse reaction cp4 Medication: 12:45 VIS not applicable for this client. cp4 Outcome: 13:42 Discharge ordered by . rn 14:10 Discharged to home ambulatory, cp4 14:10 Condition: stable 14:10 Discharge instructions given to patient, Instructed on discharge instructions, follow up and referral plans. medication usage, Demonstrated understanding of instructions, follow-up care, medications, Prescriptions given X 1, 14:13 Patient left the ED. cp4 Signatures: Dispatcher [employer] EDMS Jasmeet Morris MD MD rn Swanson, Donovan ds4 Nena Bhat RN RN hb [place], [place] mg5 Cira Reis cp4 Corrections: (The following items were deleted from the chart) 14:13 14:10 BP 138 / ???; Pulse 89bpm; Resp 20bpm; Temp 100F; cp4 cp4
--- NOTE | 2023-06-09 13:43 | EDPHYS ---
Physician Documentation [facility] Name: Stacey Sesay Age: 52 yrs Sex: Female : 1970 Arrival Date: 06/09/2023 Time: 11:57 Bed Treatment Private MD: ED Physician Jasmeet Morris HPI: 06/09 13:20 This 52 yrs old Female presents to ER via Ambulatory with complaints of Side pain, rn Abdominal Pain. 13:20 The patient presents with abdominal pain. Onset: The symptoms/episode began/occurred 2 rn day(s) ago. The symptoms do not radiate. Associated signs and symptoms: Pertinent positives: nausea and vomiting, Pertinent negatives: blood in stools, chest pain, fever. The symptoms are described as achy, crampy, sharp. Modifying factors: The symptoms are alleviated by nothing, the symptoms are aggravated by movement, pressure. Severity of pain: At its worst the pain was moderate in the emergency department the pain is unchanged. The patient has experienced similar episodes in the past. Patient reports seen here last night, told possible diverticulitis, has had multiple episodes of diverticulitis in the past. Went home and reports abdominal pain now worse and cannot stop vomiting. No fever. No blood in stool.. Historical: - Allergies: 12:03 No Known Allergies; hb - PMHx: 12:03 Aneurysm; Seizures; hb - PSHx: 12:03 Cholecystectomy; hb - Immunization history:: Adult Immunizations up to date. - Social history:: Smoking status: Patient denies any tobacco usage or history of. - Family history:: not pertinent. - Hospitalizations: : No recent hospitalization is reported. ROS: 13:20 Constitutional: Negative for fever, chills, and weight loss, Neck: Negative for injury, rn pain, and swelling, Cardiovascular: Negative for chest pain, palpitations, and edema, Respiratory: Negative for shortness of breath, cough, wheezing, and pleuritic chest pain, Abdomen/GI: Positive for abdominal pain/nausea/vomiting Back: Negative for injury and pain, MS/Extremity: Negative for injury and deformity, Skin: Negative for injury, rash, and discoloration, Neuro: Negative for headache, weakness, numbness, tingling, and seizure, Exam: 13:20 Constitutional: This is a well developed, well nourished patient who is awake, alert, rn appears uncomfortable and dry heaving Head/Face: Normocephalic, atraumatic. Cardiovascular: Regular rate and rhythm. No pulse deficits. Respiratory: No increased work of breathing, no retractions or nasal flaring. Abdomen/GI: Soft, tender in all 4 quadrants, no peritoneal signs Skin: Warm, dry MS/ Extremity: Pulses equal, no cyanosis. Neuro: Awake and alert, GCS 15 Vital Signs: 12:02 BP 148 / 91; Pulse 82; Resp 24; Temp 98.9; Pulse Ox 100% on R/A; Weight 68.95 kg; hb Height 5 ft. 4 in. ; Pain 9/10; 14:12 BP 138 / 89; Pulse 81; Resp 20; Pulse Ox 100% ; cp4 12:02 Body Mass Index 26.09 (68.95 kg, 162.56 cm) hb 12:02 Pain Scale: Adult hb MDM: 12:01 Patient medically screened. rn 13:39 Differential diagnosis: bowel obstruction, diverticulitis, non-specific abd pain, rn Perforation, mass, viral enteritis. Data reviewed: vital signs, nurses notes, lab test result(s), radiologic studies, CT scan, and as a result, I will discharge patient. Counseling: I had a detailed discussion with the patient and/or guardian regarding the historical points, exam findings, and any diagnostic results supporting the discharge/admit diagnosis, lab results, radiology results, the need for outpatient follow up, to return to the emergency department if symptoms worsen or persist or if there are any questions or concerns that arise at home. Special discussion: Based on the patient's Hx, exam, and Dx evaluation, there is no indication for emergent surgery or inpatient Tx. It is understood by the patient/guardian that if the Sx's persist or worsen they need to return immediately for re-evaluation. I discussed with the patient/guardian in detail that at this point there is no indication for admission to the hospital. It is understood, however, that if the symptoms persist or worsen the patient needs to return immediately for re-evaluation. Based on the history and exam findings, there is no indication for further emergent testing or inpatient evaluation. I discussed with the patient/guardian the need to see the telecommunications field engineer for further evaluation of the symptoms. I discussed with the patient/guardian the need to see the general surgeon for further evaluation of the symptoms. ED course: No acute findings or changes compared to last night. Normal WBC. No active infection or perforation. Still shows colonic mass that patient has been aware of. Has seen Dr. Kat and is told that that is scar tissue and not a mass. We will follow-up with GI.. 06/09 12:13 Order name: CBC with Diff; Complete Time: 13:45 rn 06/09 12:13 Order name: CMP; Complete Time: 13:25 rn 06/09 12:53 Order name: CBC Smear Scan; Complete Time: 13:45 EDMS 06/09 12:13 Order name: CT Abd/Pelvis - Without Contrast; Complete Time: 12:40 rn 06/09 12:13 Order name: IV Saline Lock; Complete Time: 12:44 rn 06/09 12:13 Order name: Labs collected and sent; Complete Time: 12:44 rn Administered Medications: 12:44 Drug: NS 0.9% IV 1000 ml IV at 1 bolus Per protocol; 1000 mL bolus Route: IV; Rate: 1 cp4 bolus; Site: left antecubital; 13:30 Follow up: Response: No adverse reaction; IV Status: Completed infusion cp4 12:44 Drug: Ondansetron IVP 4 mg IVP once; over 2 minutes Route: IVP; Site: left antecubital; cp4 13:31 Follow up: Response: No adverse reaction cp4 Disposition Summary: 06/09/23 13:42 Discharge Ordered Notes: Location: Home rn Problem: an ongoing problem rn Symptoms: have improved rn Condition: Stable rn Diagnosis - Abdominal pain, unspecified rn - Vomiting, unspecified rn - Colon Mass rn Followup: rn - With: Private Physician - When: As needed - Reason: Recheck today's complaints, Re-evaluation by your physician Discharge Instructions: - Discharge Summary Sheet rn - Abdominal Pain, Adult rn - Nausea and Vomiting, Adult rn - Colon Mass, Adult rn Forms: - Medication Reconciliation Form rn - Thank You Letter rn - Antibiotic nurse extern - Prescription Opioid Use rn - Patient Portal Instructions rn - Leadership Thank You Letter rn Prescriptions: - ondansetron 4 mg Oral Tablet,disintegrating - take 1 tablet ORAL route every 8 hours As needed; 10 tablet; Refills: 0, rn Product Selection Permitted Signatures: Dispatcher MedHoGetGlue EDJasmeet Bansal MD MD rn Baxter Nena, RN RN Cira Cruz cp4
[2023-06-09 14:27] VITALS: TEMP 98.9; O2SAT 100
[2023-06-09 14:30] VITALS: BP 138/89
== END 2023-06-09 14:13 | disposition home or self-care (01) ==
LOC: ER 11:57
DX: K63.89 Other specified diseases of intestine (principal); R11.10 Vomiting, unspecified
CPT/HCPCS: 36415; 74176; 80053; 85025; 96361; 96374; 99284

== ENCOUNTER 2023-07-13 06:57 | Inpatient (IN) | payer OTHER ==
[2023-07-09 11:40] LABS: Absolute Lymphocytes (CBC) 2.6 K/uL (0.7-4.9); Hematocrit 37.2 % (36.0-45.0); Lymphocytes % 36.4 % (15.3-44.8); MCV 98.3 fL (80-100); MPV 7.8 fL (7.6-11.3); Platelets 211 thou/uL (152-406); RBC Red Blood Cell Count 3.78 M/uL (3.86-4.86)
[2023-07-09 11:56] LABS: Potassium 3.9 mEq/L (3.5-5.1)
--- NOTE | 2023-07-09 12:29 | RAD REPORT ---
EXAM DESCRIPTION: RAD - Chest Pa And Lat (2 Views) - 07/09/2023 11:45 am CLINICAL HISTORY: Pre op pending colectomy. Hypertension COMPARISON: Chest Single View dated 04/08/2016 TECHNIQUE: PA and lateral views of the chest were obtained. FINDINGS: The lungs are clear. Heart size is normal and central vasculature is within normal limits. No pleural effusion or pneumothorax seen. No acute bony finding noted. IMPRESSION: No acute cardiopulmonary process.
[2023-07-13] MEDS ORDERED: Ringers Lactate 1,000 ML IV ONE ×3 (07:30→13:51)
[2023-07-13] MEDS ORDERED: CEFAZOLIN SODIUM 2 GM/VIAL ONE (07:30)
[2023-07-13] MEDS ORDERED: propofoL 200 MG/20 ML VIAL IV ONE (08:24)
[2023-07-13] MEDS ORDERED: LIDOCAINE 2% MPF 5 ML VIAL ONE (08:24)
[2023-07-13] MEDS ORDERED: MIDAZOLAM HCL 2 MG/2 ML INJ ONE (08:24)
[2023-07-13] MEDS ORDERED: FENTANYL CITR 100 MCG/2 ML ONE (08:24)
[2023-07-13] MEDS ORDERED: ROCURONIUM 50 MG/5 ML VIAL IV ONE (08:24)
[2023-07-13] MEDS ORDERED: VECURONIUM 10 MG/VIAL IV ONE (08:27)
[2023-07-13] MEDS ORDERED: BUPIVACAINE 0.25% PF 30 ML VIAL ONE (08:35)
[2023-07-13] MEDS ORDERED: ONDANSETRON 4 MG/2 ML VIAL ONE ×2 (09:29→15:09)
[2023-07-13] MEDS ORDERED: dexAMETHasone 10 MG/ML VIAL ONE (09:30)
[2023-07-13] MEDS ORDERED: FENTANYL CITR 250 MCG/5 ML ONE (09:44)
[2023-07-13] MEDS ORDERED: LABETALOL 20 MG/4ML SYRINGE IV ONE (10:59)
--- NOTE | 2023-07-13 14:02 | P.OP ---
Preoperative diagnosis: Sigmoid Colon Stenosis / History of Diverticulitis Postoperative diagnosis: Sigmoid Colon Stenosis / History of Diverticulitis Primary procedure: Laparoscopic Sigmoid Colectomy Anesthesia: GETA + Local Estimated blood loss: <50cc Specimen: Sigmoid Colon Findings: Severe Adhesions to LEFT pelvis, Fallopain tubes, thick adipose Complications: None Transferred to: Recovery Room Condition: Good
[2023-07-13] MEDS ORDERED: HYDROCODONE/APAP 7.5/325 MG TAB PO PRN (14:24)
[2023-07-13] MEDS: HYDROMORPHONE HCL 1 MG/ML INJ ONE ×5 (14:51→16:03)
[2023-07-13] MEDS: D5.45NS W/KCL 20MEQ 1,000 ML IV SCH (15:00)
--- OUTSIDE RECORDS SUMMARY | 2023-07-13 15:39 | XMS REPORT | Continuity of Care Document ---
:1970 Author Organization [facility] t Address [address] [place] [address] Care Team Providers Name Role Phone ANGELITA ANAYA Attending Clinician Unavailable VANGIE MOSCOSO Attending Clinician Unavailable LAB90 Attending Clinician Unavailable JONATAN PATRICIA Attending Clinician Unavailable JUAN DAVID GUTIERREZ Attending Clinician Unavailable KENYA ANDERSON Attending Clinician Unavailable ZAID SHARP Attending Clinician Unavailable YEVGENIY QUEEN Attending Clinician Unavailable ZACHARY MOORE Attending Clinician Unavailable RITO JORGE Attending Clinician Unavailable BLAIRE SEN Attending Clinician Unavailabl e CIPRIANO_F Attending Clinician Unavailable Omer Delgadillo Attending Clinician Unavailable ALYSON_Vy Attending Clinician Unavailable Es Shields Attending Clinician [phone] BLANCHE CUEVAS Attending Clinician Unavailable CIPRIANO_F Admitting Clinician Unavailable ALYSON_Vy Admitting Clinician Unavailable Payers Payer Name Policy Type Policy Number Effective Date Expiration Date S wilfredo [employer] MP CVS 9 [id number] 2022 00:00:00 SILVER 2: 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 treated in 2007 in [place] Allergies, Adverse Reactions, Alerts This patient has no known allergies or adverse reactions. Social History Social Habit Start Date Stop Date Quantity Comments Source Gender identity Blaire briceño - External Sexual orientation Blaire Moses - External History of tobacco Cigarette Smoker Blaire Moses use - External Alcohol intake 2023-06-10 2023-06-10 Current drinker of Luis Moses 00:00:00 00:00:00 alcohol (finding) - Exter nal History of Social 2023-04-27 2023-04-27 Blaire Moses function 00:00:00 00:00:00 - External Education 2022-12-22 2022-12-22 14 Blaire Moses 00:00:00 00:00:00 - External Alcohol Comment 2022-12-22 2022-12-22 occasionally Blaire Moses 00:00:00 00:00:00 - External Cigarettes smoked 2022-12-22 2022-12-22 Blaire Moses current (pack per 00:00:00 00:00:00 - Exter nal day) - Reported Cigarette 2022-12-22 2022-12-22 Blaire Moses pack-years 00:00:00 00:00:00 - External Tobacco use and 2022-12-22 2022-12-22 Smokeless tobacco Luis Moses exposure 00:00:00 00:00:00 non-user - External Tobacco Comment 2022-12-19 2022-12-19 Stopped [...] Date Medication? Clinician (SIG) Name Name Tramadol 2022-08- No every 6 Kelse y HCl -06-10 (six) Seybold (ULTRAM) 50 14:42: 00:00 hours - MG oral 21 :00 Externa Tablet l Tramadol Yes every 6 Blaire HCl 01-29 (six) Seybold (ULTRAM) 50 13:34: hours - MG oral 48 Externa Tablet l Tramadol Yes [id number] 50mg Q.5D Take 1 Ke lsey HCl 5-15 tablet (50 Seybold (ULTRAM) 50 00:00: mg total) - MG oral 00 by mouth 2 [employer] a Tablet times l daily as needed for pain Tramadol Yes [id number] 50mg Q.5D Take 1 Ke lsey HCl 5-15 tablet (50 Seybold (ULTRAM) 50 00:00: mg total) - MG oral 00 by mouth 2 [employer] a Tablet times l daily as needed for pain Tramadol 2022- No [id number] 50mg Q.5D Take 1 K elsey HCl -15 06-10 tablet (50 Seybold (ULTRAM) 50 00:00: 00:00 mg total) - MG oral 00 :00 by mouth 2 [employer] a Tablet times l daily as needed [...] Externa DISPERSIBLE 6 HOURS l NEEDED Ondansetron 2022- No DISSOLVE 1 Blaire (ZOFRAN) 4 12-18 TABLET IN Dmitriy bold MG oral 00:00: 00:00 MOUTH - TABLET 00 :00 EVERY 4 TO Externa DISPERSIBLE 6 HOURS l NEEDED Acetaminoph 2022- No TAKE 2 Kurt dmitriy en-Codeine - 05-15 TABLETS BY Se briceño #2 300-15 00:00: 00:00 MOUTH - MG oral 00 :00 EVERY 4 Externa Tablet HOURS l NEEDED amoxicillin amoxicillin No 1 Q12H amoxicilli [place] 500 500 n 500 Communi mg-potassiu mg-potassiu [...] days. chlorhexidi chlorhexidi No 15mL BID chlorhexid [place] ne ne ine Communi gluconate gluconate gluconate ty 0.12 % 0.12 % 0.12 % Hospita mouthwash mouthwash mouthwash l Place [address] 15 Clinics twice a day twice a day mL twice a by mucous by mucous day by membrane membrane mucous route. route. membrane route. tramadol 50 tramadol 50 No 1 Q6H tramadol [place] mg tablet mg tablet 50 mg Comm uni Take 1 Take 1 tablet ty tablet tablet Take 1 Hospita every 6 every 6 tablet l hours by hours by every 6 Clin ics oral route oral route hours by as needed. as needed. oral route as needed. Immunizations Ordered Filled Immunization Date Status Comments [facility] e Immunization Name Name Covid-19 Vaccine 2021-04-29 Completed Blaire Cooley (Spikevax), 00:00:00 - Ext ernal Mrna-lnp, Tee Protein, Pf COVID-19, mRNA, COVID-19, mRNA, 2021-04-29 Completed Sukhdev ny LNP-S, PF, 100 LNP-S, PF, 100 00:00:00 Commun ity mcg/0.5 mL dose mcg/0.5 mL dose Hosp [facility] Clin[facility] Covid-19 Vaccine Unknown Completed Blaire S eybold Moderna (Spikevax), - Ext ernal Mrna-lnp, Tee Protein, Pf Vital Signs Vital Name Observation Time Observation Value Comments Source Systolic blood 2023-06-10 18:55:00 110 mm[Hg] Blaire Bustilloybold - pressure External Diastolic blood 2023-06-10 18:55:00 74 mm[Hg] Kurtse y Seybold - pressure External Heart rate 2023-06-10 18:55:00 78 /min Blaire Mcclellan eybold - External Body temperature 2023-06-10 18:55:00 36.61 Marcela Sybil ey Seybold - External Respiratory rate 2023-06-10 18:55:00 18 /min Sybil kaur Seybold - External Body height 2023-06-10 18:55:00 162.6 cm Blaire kaurbold - External Body weight 2023-06-10 18:55:00 70.875 kg Blaire Mcclellan eybold - External BMI 2023-06-10 18:55:00 26.82 kg/m2 Blaire Mcclellan eybold - External Oxygen saturation in 2023-06-10 18:55:00 99 /min Blaire Moses - Arterial blood by External Pulse oximetry Systolic blood 2023-02-02 13:57:00 129 mm[Hg] Blaire Bustilloybold - pressure External Diastolic blood 2023-02-02 13:57:00 82 mm[Hg] Sumeet y Seybold - pressure External Heart rate 2023-02-02 13:57:00 80 /min Blaire Mcclellan eybold - External Body temperature 2023-02-02 13:57:00 36.61 Marcela Sybil kaur Seybold - External Respiratory rate 2023-02-02 13:57:00 14 /min Sybil kaur Seybold - External Body height 2023-02-02 13:57:00 162.6 cm Blaire Mcclellan eybold - External Body weight 2023-02-02 13:57:00 73.483 kg Blaire Mcclellan eybold - External BMI 2023-02-02 13:57:00 27.81 kg/m2 Blaire Mcclellan eybold - External Oxygen saturation in 2023-02-02 13:57:00 99 /min Blaire Bahenaold - Arterial blood by External Pulse oximetry Body height 2022-12-22 21:27:00 162.6 cm Blaire Mcclellan eybold - External Body weight 2022-12-22 21:27:00 77.565 kg Blaire Mcclellan eybold - External BMI 2022-12-22 21:27:00 29.35 kg/m2 Blaire Mcclellan eybold - External Systolic blood 2022-12-22 21:27:00 117 mm[Hg] Blaire Seybold - pressure External Diastolic blood 2022-12-22 21:27:00 82 mm[Hg] Sumeet villarreal Seybold - pressure External Heart rate 2022-12-22 21:27:00 84 /min Blaire Mcclellan eybold - External Body temperature 2022-12-22 21:27:00 37.06 Marcela Sybil kaur Seybold - External Respiratory rate 2022-12-22 21:27:00 19 /min Sybil kaur Seybold - External BP Diastolic 2021-05-24 00:00:00 94 mm[Hg] [facility] Height 2021-05-24 00:00:00 64 [in_i] [facility] s BMI (Body Mass 2021-05-24 00:00:00 31.1 kg/m2 [facility]) [facility] s BP Systolic 2021-05-24 00:00:00 147 mm[Hg] [facility] s Body Weight 2021-05-24 00:00:00 2902.4 [oz_av] [facility] s Procedures Procedure Date / Time Performing Clinician Source Performed MAMMO, screening, digital, 2021-05-24 00:00:00 [facility] Clinics Cholecystectomy [facility] Plan of Care Planned Activity Planned Date Details Comments Source Diagnostic Test 2021-05-24 CBC w/ auto diff [facility] Pending 00:00:00 [code = CBC w/ Hospital Clin ics auto diff] Diagnostic Test 2021-05-24 TSH, serum, reflex [facility] Pending 00:00:00 free T4 [code = Hospital Cli nics TSH, serum, reflex free T4] Diagnostic Test 2021-05-24 CMP, serum or [place] [facility] unity Pending 00:00:00 plasma [code = Hospital Clin ics CMP, serum or plasma] Diagnostic Test 2021-05-24 lipids, total, [place] [facility] Pending 00:00:00 serum [code = Hospital Clini cs lipids, total, serum] Encounters Start End Encounter Admission Attending Care Care Encounter Source Date/Time Date/Time Type Type Clinicians Facility Department ID 2023-06-10 2023-06-10 Outpatient BLAIRE ANAYA [id number] [place] 14:00:00 14:00:00 ANGELITA Seybol d 2023-03-09 2023-03-09 Outpatient BLAIRE MOSCOSO [id number] [place] 10:45:00 10:45:00 VANGIE Seybol d 2023-02-02 2023-02-02 Outpatient LAB90 BLAIRE VIDALES [id number] [place] 15:20:00 15:20:00 Seybol d 2023-02-02 2023-02-02 Outpatient BLAIRE PATRICIA [id number] [place] 09:00:00 09:00:00 JONATAN Seybol d 2023-01-16 2023-01-16 Outpatient BLAIRE GUTEIRREZ [id number] [place] 15:00:00 15:00:00 JUAN DAVID Seybol d 2023-01-16 2023-01-16 Outpatient BLAIRE ANDERSON [id number] [place] 00:00:00 00:00:00 LASUNDRA Seybo ld 2023-01-16 2023-01-16 Outpatient BLAIRE SHARP [id number] [place] 00:00:00 00:00:00 SHANEIKA Seybo ld 2023-01-06 2023-01-06 Outpatient BLAIRE QUEEN [id number] [place] 14:00:00 14:00:00 YEVGENIY Seybol d 2023-01-06 2023-01-06 Outpatient BLAIRE QUEEN [id number] [place] 00:00:00 00:00:00 YEVGENIY Seybol d 2023-01-01 2023-01-01 Outpatient BLAIRE MOORE [id number] [place] 14:30:00 14:30:00 ZACHARY Seybol d 2023-01-01 2023-01-01 Outpatient PREZAS, BLAIRE VIDALES [id number] [place] 00:00:00 00:00:00 JUAN DAVID Seybol d 2022-12-31 2022-12-31 Outpatient PREZAS, BLAIRE VIDALES [id number] [place] 00:00:00 00:00:00 JUAN DAVID Seybol d 2022-12-31 2022-12-31 Outpatient PREZAS, BLAIRE VIDALES [id number] [place] 00:00:00 00:00:00 JUAN DAVID Seybol d 2022-12-30 2022-12-30 Outpatient ANIA, BLAIRE VIDALES [id number] [place] 09:00:00 09:00:00 RITO Seybol d 2022-12-30 2022-12-30 Outpatient PREZAS, BLAIRE VIDALES [id number] [place] 00:00:00 00:00:00 JUAN DAVID Seybol d 2022-12-26 2022-12-26 Outpatient PREZAS, BLAIRE VIDALES [id number] [place] 00:00:00 00:00:00 JUAN DAVID Seybol d 2022-12-23 2022-12-23 Outpatient PREZAS, BLAIRE VIDALES [id number] [place] 00:00:00 00:00:00 JUAN DAVID Seybol d 2022-12-22 2022-12-22 Outpatient PREZAS, BLAIRE VIDALES [id number] [place] 16:30:00 16:30:00 JUAN DAVID Seybol d 2022-12-17 2022-12-17 Outpatient GROUP, BLAIRE VIDALES [id number] [place] 00:00:00 00:00:00 BLAIRE Seybol d 2022-12-08 2022-12-08 Outpatient CHRETIEN_F [facility] [id number] [place] 00:00:00 00:00:00 0501 [facility] 2022-08-07 2022-08-07 Emergency ER Delgadillo, [facility] [id number] [place] 11:04:00 17:33:00 Omer -[id number] [facility] 2021-05-24 2021-05-24 Outpatient WATERS_S [facility] [id number] [place] 09:45:00 09:45:00 1015 [facility] i [facility]osp[facility] Clinics 2021-05-24 2021-05-24 Outpatient Alyson [facility] [id number] 00:00:00 00:00:00 Es [id number] 2021-05-24 2021-05-24 Es [facility] [place] - [place] 15 [place] 00:00:00 00:00:00 Alyson [facility] PROCUREMENT COST COORDINATOR-DIPLOMA DENTAL ASSISTANT-C: Hospital - ty [address] [facility] [address], [facility] [address], [place] [address] , Ph. 2021-05-23 2021-05-23 Outpatient VALENTINAS [facility] 2020 [place] 09:34:00 09:34:00 1014 Commun i ty Hospita l [facility] 1999-04-25 1999-04-25 Emergency ER MASON [facility] [id number] [place] 07:39:00 09:25:00 [id number] Results This patient has no known results.
[2023-07-13] MEDS: INSULIN REGULAR (HUMAN) 100 UNIT/ML SQ SCH ×2 (16:30→20:32)
[2023-07-13 16:51] VITALS: BMI 26.1
[2023-07-13] MEDS: HEPARIN 5000 UNIT/ML 1 ML VIAL SQ SCH (16:58)
[2023-07-13] MEDS: METRONIDAZOLE 500mg IVPB 500 MG/100 ML BAG IV SCH (17:32)
[2023-07-13] MEDS: ONDANSETRON 4 MG (ODT) TAB PO PRN (20:31)
[2023-07-13] MEDS: CIPROFLOXACIN 400mg IV 400 MG/200 ML BAG IV SCH (20:31)
--- NOTE | 2023-07-13 23:38 | OP ---
Date of Procedure: 07/13/2023 Surgeon: Fidencio Kat MD, Brief History Of Present Illness: The patient is a 52-year-old female who has a longstanding history of sigmoid phlegmon and possible neoplastic process. She had been in the hospital multiple times an d multiple CT scans, which showed a progressive enlarging possible neoplastic process of the sigmoid colon. She ultimately presented and some point in the recent past to the ER here, at which point I w as consulted to see the patient. She improved throughout her convalescence and ultimately I saw her in clinic and scheduled a colonoscopy for biopsy of the possible neoplastic process. I performed a c olonoscopy at that point and found only tubular adenoma near the area of stenosis, but significant st enosis approximately 20-25 cm of the sigmoid colon. The stenosis appeared benign at this point; kirk[place] jaydon, multiple random biopsies were performed of this area and they came back as no evidence of malign debbie. As such, this seemed to be some form of either diverticular stricture or stenosis from inflamm atory process. There was no evidence of neoplasia based on colonoscopy. As such, the patient and I discussed the surgical operative plan and she requested surgical intervention. As such, I explained the risks, benefits, and alternatives of laparoscopic possible open sigmoid colectomy and indicated p rocedure including but not limited to bleeding, infection, damage to surrounding tissues, injury to u reters, injury to pelvic nerves, fistula, possible anastomotic leak, need for further operation or pr ocedures, heart attack, blood clots, strokes, other unforeseen complications in the perioperative per iod, need for further operations in the future. The patient agreed to proceed as indicated. Preoperative Diagnoses: Sigmoid colon stenosis and history of diverticulitis. Postoperative Diagnoses: Sigmoid colon stenosis and history of diverticulitis. Procedure Performed: Laparoscopic sigmoid colectomy. Anesthesia: General endotracheal plus local with 0.25% Marcaine. Estimated Blood Loss: Less than 50 cc. Findings: Severe adhesions of the colon/sigmoid colon to the left pelvis as well as to the fallopian tube. There was thick adipose tissue with a creeping fat appearance over the majority of the descen ding colon. She had significant intraabdominal adiposity and thickened mesentery. Complications: None immediate. Specimen: Sigmoid colon as well as 2 donuts/from the EEA anastomotic stapler, which were found to be intact. Disposition: The patient was transferred to the recovery room in good condition. Procedure In Detail: After informed consent was obtained, the patient was brought to the operating r oom, prepped and draped in the usual fashion. After adequate anesthesia was achieved, I proceeded by placing a supraumbilical trocar, which was a 5 mm 0-degree optical trocar placed under direct visual ization without evidence of complication. Insufflation was obtained to 15 mmHg. At this time, there was no injury to vital structures in the abdomen. Two additional trocars were placed, one in the [facility] mid to upper quadrant, which was a 5 mm trocar placed under direct visualization without evidence of complication. A right lower quadrant trocar was placed under direct vision, which was also a 12 mm trocar placed under direct visualization without evidence of complication. The umbilical trocar s ite was then upsized to a 12 mm under direct visualization without evidence of complication. I then placed a right lower quadrant 5 mm trocar under direct visualization without evidence of complication , so a total 4 trocars were placed, two 5 mm, two 12 mm. The patient was then positioned in the head down, right side up position. I began by sweeping the bowel back into the right upper quadrant and placed in the omentum up over the liver and in the area of the spleen. I then found Treitz angle/lig ament of Treitz, and I saw and visualized the superior mesenteric vein. This was easily visualized a nd I noted this location in case mobilization was required. I then proceeded to inspect the left low er quadrant, which was found to have a significant inflammatory ball in the sigmoid colon, which was plastered to the left sidewall as well as to the left fallopian tube. I used a LigaSure device to se parate the fallopian tube from the colon at this point and began mobilizing the lateral aspect of the adhesions from the left pelvic sidewall as it had the colon suspended in a position whereby I could not check tension for possible future planning of anastomosis. At this point, I performed a lateral mobilization whereas usually I perform a medial mobilization, but I went along the white line of Told t Gerota's fascia along the white line all the way up to the splenic flexure. I then took down some of the splenic flexure ligaments to allow for mobilization of the colon using the LigaSure device. At this point, after I had laterally mobilized the colon, I began a medial mobilization by taking down the peritoneum. I opted to simply ligate hemorrhoidal branches to maintain the vasculatu re as much as possible. I opted not to take a high ligation of the SMA at this point, as I felt that there was enough laxity of the colon to reach the pelvis without significant additional mobilization being required. In addition, there was no evidence of malignancy and as such, I opted for simply ta mariela down hemorrhoidal branches. At this point, I created a window onto soft proximal bowel, placed clips on the nice soft proximal bowel, epiploic appendages both proximally and distally on the rectum . At this point, I used a LigaSure device to create windows between these 2 planes and continued the dissection from medial to lateral approach. I kept the tissue planes intact and the ureter and othe r vascular structures were left with covered Gerota's fascia to prevent any injury in these areas. A t this point, after I appropriately mobilized the colon, I flipped the left colon down into the pelvi s and found it to sit in this area without tension even while the patient remained in steep Trendelen paco position with the left tilt. As such, I brought in the JAVI laparoscopic purple 60 load and fire d across the rectosigmoid junction just proximal where tenia flared near the sacral promontory where the bowel was nice and soft. At this point, I resected a small portion of the rectum. I then procee ded to demarcate the area and mobilize the mesentery to exteriorize the specimen for anastomotic prep aration. After this was completed, the area was inspected. No hemostatic measures required. Ray-Te c's were used throughout the procedure, but found to be intact on the final count at the end of the p rocedure to achieve additional hemostasis. At this point, I grasped the distal staple line of the si gmoid rectosigmoid transection plane and proceeded to open the left lower quadrant 5 mm trocar site e xtending from its incision. At this point, after I opened this up, I placed a tissue protector/GelPo rt Jaciel device into the space and then brought the specimen out through this incision. At this poi nt, it was easy to visualize the vascular demarcation and as such, I opted to take an additional 1 cm to 1.5 cm of the left colon. A mesenteric window was created once again and swept clean using the L igaSure device. I then fired an additional TA 60 stapler at this point and ligated the specimen and sent it off for pathologic examination. I then turned my attention to the planning of the anastomosi s. Allis retractors were placed. A pursestring device was used to apply pursestring suture into the left colon. I then ligated this and sent off for the additional specimen. At this point, I then op ened up the lumen and placed a Sizer and a 25 dilator Sizer fit quite easily at this point after bein g lubricated. I then placed the anvil of the 25 EEA powered stapler into this and secured using the pursestring suture device. At this point, the area was cleansed. The bowel was returned to the abdo mariano compartment, ensuring that there was no adipose tissue on the anvil surface to allow for an yaya ropriate anastomosis. At this point, the GelPort device was applied. New gown and gloves were obtai suma, and reinsufflation was obtained at this point. I then inspected the pelvis. Some additional sw eeping back of some adipose tissue was required after placing the EEA into the rectum by my purchasing administrative assistant . I swept back some adipose tissue using the LigaSure device. It remained well vascularized. The s pike was then withdrawn. The bowel was connected using the EEA anastomosis and anvil. I ensure ther e was no rotation of the bowel. The patient was positioned back in neutral position. At this point, I had the EEA anvil tight into the midportion. I ensured no small bowel or adipose tissue had been swept into the area. There was no twisting of the bowel again at this point and no tension. At this point, the EEA stapler was fired with a good result. The stapler was removed. I insufflated the ar ea and put a laparoscopic Doyen clamp over the distal aspect beyond the anastomosis and insufflation was obtained without any evidence of leakage after proctoscopy was performed by my purchasing administrative assistant, who ins ufflated air until gas returned from the perianal area under pressure. At this point, the remaining fluid was suctioned out, and I personally went below and inspected the anastomosis using the proctosc ope and it was found to be good and patent at this point. Gas passed easily into the abdomen and the re was no bleeding from the staple line at this point and the mucosa remained pink and viable. At th is point, I removed the proctoscope, gown and gloves, and inspected the abdomen once again. The abdo men was copiously irrigated and suctioned out until completely dry. No hemostatic measures required. The bowel had been in good position. I then returned the omentum to the normal anatomic position a nd wrapped the anastomosis with the omentum in the pelvis. I then removed the GelPort after desuffla tion was performed and closed the left lower quadrant GelPort site using a #1 looped PDS suture with good approximation of the tissues. I then irrigated the skin copiously and closed it with interrupte d criselda. Insufflation was obtained once again. I then inspected my closure from the inside and fo und it to be completely intact and airtight and with good closure. At this point, there were 2 remai virgilio trocars, which were 12 mm trocars and one 5 mm trocar. The two 12 mm trocars were closed using a Quintin-Nikki suture passer with 0 Vicryl in an interrupted fashion with good approximation of ti ssues. The abdomen was completely desufflated with the remaining 5 mm trocar under direct visualizat ion without evidence of complication. Remaining trocars were removed. All skin edges were then copi ously irrigated and closed with a 4-0 Monocryl in a running fashion. Dermabond was placed over top. The patient tolerated the procedure well without evidence of complication and was transferred to PAC U in good condition. All counts were correct at the end of the case. TK/MODL Voice ID: [id number] Report ID: [id number]
[2023-07-14] MEDS: METRONIDAZOLE 500mg IVPB 500 MG/100 ML BAG IV SCH ×4 (00:30→17:29)
[2023-07-14] MEDS: HEPARIN 5000 UNIT/ML 1 ML VIAL SQ SCH ×3 (01:38→16:35)
[2023-07-14] MEDS: HYDROMORPHONE HCL 1 MG/ML INJ IV PRN ×3 (01:39→17:52)
[2023-07-14 02:52] LABS: Absolute Lymphocytes (CBC) 1.5 K/uL (0.7-4.9); Hematocrit 37.1 % (36.0-45.0); Lymphocytes % 9.4 % (15.3-44.8); MCV 99.4 fL (80-100); MPV 8.7 fL (7.6-11.3); Platelets 200 thou/uL (152-406); RBC Red Blood Cell Count 3.73 M/uL (3.86-4.86)
[2023-07-14 03:03] LABS: Magnesium 1.8 mg/dL (1.6-2.4); Phosphorus 2.3 mg/dL (2.5-4.9)
[2023-07-14] MEDS: D5.45NS W/KCL 20MEQ 1,000 ML IV SCH ×3 (05:53→17:48)
[2023-07-14] MEDS: INSULIN REGULAR (HUMAN) 100 UNIT/ML SQ SCH ×4 (07:30→21:00)
[2023-07-14] MEDS: ONDANSETRON 4 MG (ODT) TAB PO PRN ×2 (08:12→22:02)
[2023-07-14] MEDS ORDERED: POTASS/SODIUM PHOSPHATE 1 PKT POWD.PACK PO ONE (09:00)
[2023-07-14] MEDS: CIPROFLOXACIN 400mg IV 400 MG/200 ML BAG IV SCH ×2 (09:40→20:18)
[2023-07-15] MEDS: HEPARIN 5000 UNIT/ML 1 ML VIAL SQ SCH ×3 (00:10→17:37)
[2023-07-15] MEDS: METRONIDAZOLE 500mg IVPB 500 MG/100 ML BAG IV SCH ×5 (00:11→23:03)
[2023-07-15 02:10] LABS: Absolute Lymphocytes (CBC) 2.5 K/uL (0.7-4.9); Hematocrit 36.3 % (36.0-45.0); Lymphocytes % 23.9 % (15.3-44.8); MCV 99.6 fL (80-100); MPV 8.4 fL (7.6-11.3); Platelets 195 thou/uL (152-406); RBC Red Blood Cell Count 3.65 M/uL (3.86-4.86)
[2023-07-15 02:24] LABS: Magnesium 1.8 mg/dL (1.6-2.4); Phosphorus 1.7 mg/dL (2.5-4.9); Potassium 3.9 mEq/L (3.5-5.1)
[2023-07-15] MEDS ORDERED: MAGNESIUM SULFATE 1 gm IVPB 0 GM/0 ML BAG IV ONE (03:15)
[2023-07-15] MEDS: D5.45NS W/KCL 20MEQ 1,000 ML IV SCH ×3 (05:50→20:50)
[2023-07-15] MEDS: POTASS/SODIUM PHOSPHATE 1 PKT POWD.PACK PO SCH ×3 (05:50→09:00)
[2023-07-15] MEDS ORDERED: MAGNESIUM SULFATE 1 gm IVPB 1 GM/100 ML BAG IV ONE (06:00)
[2023-07-15] MEDS: ONDANSETRON 4 MG (ODT) TAB PO PRN ×3 (06:56→23:03)
[2023-07-15] MEDS: INSULIN REGULAR (HUMAN) 100 UNIT/ML SQ SCH ×4 (07:30→20:50)
[2023-07-15] MEDS: CIPROFLOXACIN 400mg IV 400 MG/200 ML BAG IV SCH ×2 (10:56→20:49)
[2023-07-15] MEDS: POTASSIUM 25 MEQ EFFERV TAB PO ONE ×2 (10:56→10:57)
[2023-07-15] MEDS: ACETAMINOPHEN 500 MG TAB PO PRN (17:38)
[2023-07-16] MEDS: HEPARIN 5000 UNIT/ML 1 ML VIAL SQ SCH ×2 (00:19→09:06)
[2023-07-16] MEDS: D5.45NS W/KCL 20MEQ 1,000 ML IV SCH (03:00)
[2023-07-16 03:19] LABS: Absolute Lymphocytes (CBC) 2.5 K/uL (0.7-4.9); Hematocrit 37.4 % (36.0-45.0); Lymphocytes % 29.6 % (15.3-44.8); MCV 99.9 fL (80-100); MPV 8.3 fL (7.6-11.3); Platelets 198 thou/uL (152-406); RBC Red Blood Cell Count 3.74 M/uL (3.86-4.86)
[2023-07-16 03:28] LABS: Magnesium 2.3 mg/dL (1.6-2.4); Phosphorus 2.1 mg/dL (2.5-4.9); Potassium 4.4 mEq/L (3.5-5.1)
[2023-07-16] MEDS: METRONIDAZOLE 500mg IVPB 500 MG/100 ML BAG IV SCH (05:32)
[2023-07-16 05:41] VITALS: O2SAT 97
[2023-07-16] MEDS ORDERED: POTASSIUM PHOS IN 0.9 % NACL 15 MMOL/250 ML BAG IV ONE ×2 (07:00→08:00)
[2023-07-16] MEDS: INSULIN REGULAR (HUMAN) 100 UNIT/ML SQ SCH (07:30)
[2023-07-16] MEDS: ACETAMINOPHEN 500 MG TAB PO PRN (09:04)
[2023-07-16] MEDS: CIPROFLOXACIN 400mg IV 400 MG/200 ML BAG IV SCH (09:04)
[2023-07-16] MEDS: ONDANSETRON 4 MG (ODT) TAB PO PRN (09:06)
[2023-07-16 09:23] VITALS: TEMP 97.8
[2023-07-16] MEDS ORDERED: HYDROCODONE/APAP 7.5/325 MG TAB PO PRN (11:27)
[2023-07-16] MEDS ORDERED: HYDROMORPHONE HCL 1 MG/ML INJ IV PRN (11:28)
[2023-07-16] MEDS ORDERED: INSULIN REGULAR (HUMAN) 100 UNIT/ML SQ SCH (11:30)
[2023-07-16] MEDS ORDERED: ONDANSETRON 4 MG (ODT) TAB PO PRN (11:30)
[2023-07-16 11:47] VITALS: BP 131/77
[2023-07-16] MEDS ORDERED: METRONIDAZOLE 500mg IVPB 500 MG/100 ML BAG IV SCH (12:00)
[2023-07-16] MEDS ORDERED: D5.45NS W/KCL 20MEQ 1,000 ML IV SCH (12:00)
[2023-07-16] MEDS ORDERED: HEPARIN 5000 UNIT/ML 1 ML VIAL SQ SCH (17:00)
[2023-07-16] MEDS ORDERED: CIPROFLOXACIN 400mg IV 400 MG/200 ML BAG IV SCH (21:00)
== END 2023-07-16 12:42 | disposition home or self-care (01) | DRG 331 ==
LOC: OR 06:57 → 2ND 15:29
PROVIDERS: ADMIT Surgery; ATTEND Surgery
PROC: 0DBN4ZZ Excision of Sigmoid Colon, Percutaneous Endoscopic Approach (ICD-10-PCS; principal; 2023-07-13 08:45)
DX: K56.699 Other intestinal obstruction unspecified as to partial versus complete obstruction (principal)
CPT/HCPCS: 36415; 71046; 80048; 82947; 83735; 84100; 85025; 86850; 86900; 86901; 88305; 88307; 94010; 94760; 97116; 97161; 97530; J0744; J1100; J1170; J1644; J2001; J2250; J2405; J2704; J3010; J3475; J7120; Q0162